=== PATIENT | female | born 1950 | race Caucasian/White ===

== ENCOUNTER → 2016-04-07 | Outpatient (CLI) | payer BC ==
[~2016-04-07] MED LIST: DULO30CA PO; ESZO3TAB53 PO; IBUP800T24 PO; METF-312 PO; METF-314 PO; NOR10T PO; OMEP20TA44 PO; TRIA75TA55 PO
[2016-04-07 09:31] LABS: BUN/Creatinine Ratio 20.1; Calcium 9.1 mg/dL (8.5-10.1); Phosphorus 3.8 mg/dL (2.5-4.90); Potassium 3.8 mmol/L (3.5-5.1); Uric Acid 7.5 mg/dL (2.6-6.0)
== END | disposition home or self-care (01) ==
LOC: LAB 08:55
PROVIDERS: ATTEND Internal Medicine
DX: M06.9 Rheumatoid arthritis, unspecified (principal)
CPT/HCPCS: 36415; 80069; 84550

== ENCOUNTER → 2016-06-09 | Outpatient (CLI) | payer BC ==
[2016-06-09 11:08] LABS: Urine Bilirubin Negative (Negative); Urine Blood Negative /uL (Negative); Urine Color Yellow (Yellow); Urine Glucose Normal (Normal); Urine Ketone Negative (Negative); Urine Mucus FEW (None Seen); Urine Nitrite Negative (Negative); Urine RBC <1 /hpf (0 - 4); Urine Squamous Epithelial Cell FEW /hpf (<5); Urine Urobilinogen Normal (Negative); Urine pH 5.5 (5.0-8.0)
[2016-06-09 11:27] LABS: Albumin 4.1 g/dL (3.4-5.0); BUN/Creatinine Ratio 17.3; Bilirubin, Total 0.2 mg/dL (0.2-1.0); Calcium 9.2 mg/dL (8.5-10.1); Potassium 3.4 mmol/L (3.5-5.1); Total Protein 7.7 g/dL (6.4-8.2); Uric Acid 7.4 mg/dL (2.6-6.0)
== END | disposition home or self-care (01) ==
LOC: LAB 09:58
PROVIDERS: ATTEND Internal Medicine
DX: I10 Essential (primary) hypertension (principal); E11.9 Type 2 diabetes mellitus without complications; N18.4 Chronic kidney disease, stage 4 (severe)
CPT/HCPCS: 36415; 80053; 80061; 81001; 82043; 82306; 83036; 83970; 84443; 84550

== ENCOUNTER → 2016-11-28 | Outpatient (CLI) | payer BC ==
[~2016-11-28] MED LIST changes: -METF-312 PO; -METF-314 PO; +METF-370 PO; +METF-371 PO
[2016-11-28 12:55] LABS: Cholesterol 219 mg/dL (< 200); HDL Cholesterol 47 mg/dL (40-59); LDL Cholesterol 123 mg/dL (< 100); Triglycerides 263 mg/dL (< 150)
== END | disposition home or self-care (01) ==
LOC: LAB 11:52
PROVIDERS: ATTEND Internal Medicine
DX: E78.2 Mixed hyperlipidemia (principal); E11.9 Type 2 diabetes mellitus without complications
CPT/HCPCS: 36415; 80061; 83036

== ENCOUNTER → 2016-12-26 | Outpatient (CLI) | payer BC ==
[2016-12-26 09:49] LABS: Urine Bilirubin Negative (Negative); Urine Blood Negative /uL (Negative); Urine Color Yellow (Yellow); Urine Glucose Normal (Normal); Urine Hyaline Cast FEW /lpf (0 - 2); Urine Ketone Negative (Negative); Urine Nitrite Negative (Negative); Urine RBC <1 /hpf (0 - 4); Urine Squamous Epithelial Cell MOD /hpf (<5); Urine pH 5.5 (5.0-8.0)
[2016-12-26 10:02] LABS: Basophils # (auto) 0.1 uL; Eosinophils # (auto) 0.4 uL; Lymphocytes # (auto) 2.5 uL; Mean Platelet Volume 7.3 fL (6.9-10.8); Monocytes # (auto) 0.7 uL; Neutrophils # (auto) 3.5 uL; Nucleated Red Blood Cells % 0.1 %; White Blood Cell 7.1 10^3/uL (4.4-10.8)
[2016-12-26 10:04] LABS: BUN/Creatinine Ratio 13.2; Basophils % (auto) 1.4 % (0.0-2.0); Calcium 8.5 mg/dL (8.5-10.1); Eosinophils % (auto) 5.4 % (0.0-7.0); Hematocrit 35.8 % (36.0-46.0); Hemoglobin 11.4 g/dL (12.2-16.2); Mean Corpuscular Hemoglobin 25.9 pg (28.0-32.0); Mean Corpuscular Hgb Conc. 31.7 g/dL (32.0-36.0); Mean Corpuscular Volume 81.7 fL (80.0-100.0); Monocytes % (auto) 9.3 % (0.0-12.0); Neutrophils % (auto) 48.9 % (37.0-80.0); Phosphorus 3.5 mg/dL (2.5-4.90); Platelet Count (auto) 296 10^3/uL (140-450); Red Cell Distribution Width 16.7 % (11.8-14.3); Uric Acid 7.1 mg/dL (2.6-6.0)
[2016-12-26 10:31] LABS: Urine Protein/Creatinine Ratio 0.16
== END | disposition home or self-care (01) ==
LOC: LAB 08:59
PROVIDERS: ATTEND Internal Medicine Nephrology
DX: N18.3 Chronic kidney disease, stage 3 (moderate) (principal); D63.1 Anemia in chronic kidney disease; M10.9 Gout, unspecified; R80.9 Proteinuria, unspecified
CPT/HCPCS: 36415; 80069; 81001; 82570; 83970; 84156; 84550; 85025

== ENCOUNTER → 2017-03-27 | Outpatient (CLI) | payer BC ==
[2017-03-27 13:08] LABS: Basophils # (auto) 0.1 uL; Basophils % (auto) 1.2 % (0.0-2.0); Eosinophils # (auto) 0.3 uL; Hemoglobin 11.4 g/dL (12.2-16.2); Monocytes # (auto) 0.6 uL
[2017-03-27 13:09] LABS: Eosinophils % (auto) 4.7 % (0.0-7.0); Hematocrit 36.8 % (36.0-46.0); Mean Corpuscular Hemoglobin 26.2 pg (28.0-32.0); Mean Corpuscular Hgb Conc. 31.1 g/dL (32.0-36.0); Mean Corpuscular Volume 84.4 fL (80.0-100.0); Monocytes % (auto) 7.6 % (0.0-12.0); Neutrophils # (auto) 3.4 uL; Neutrophils % (auto) 46.5 % (37.0-80.0); Nucleated Red Blood Cells % 0.1 %; Platelet Count (auto) 293 10^3/uL (140-450); Red Blood Cells 4.36 10^6/uL (4.0-5.20); Red Cell Distribution Width 15.9 % (11.8-14.3); White Blood Cell 7.4 10^3/uL (4.4-10.8)
[2017-03-27 13:16] LABS: Urine Bacteria FEW /hpf (None Seen); Urine Blood Negative /uL (Negative); Urine Hyaline Cast FEW /lpf (0 - 2); Urine Mucus FEW (None Seen); Urine Specific Gravity 1.021 (1.001-1.035); Urine WBC 1 /hpf (0 - 5)
[2017-03-27 13:39] LABS: Calcium 8.5 mg/dL (8.5-10.1); Phosphorus 3.6 mg/dL (2.5-4.90); Uric Acid 5.8 mg/dL (2.6-6.0)
[2017-03-27 13:50] LABS: Protein, Urine 23.5 mg/dL (0.0-11.9)
== END | disposition home or self-care (01) ==
LOC: LAB 12:49
PROVIDERS: ATTEND Internal Medicine Nephrology
DX: N18.3 Chronic kidney disease, stage 3 (moderate) (principal); D63.1 Anemia in chronic kidney disease; M10.9 Gout, unspecified; R80.9 Proteinuria, unspecified
CPT/HCPCS: 36415; 80069; 81001; 82570; 83970; 84156; 84550; 85025

== ENCOUNTER → 2017-06-26 | Outpatient (CLI) | payer BC ==
[2017-06-26 10:13] LABS: Basophils # (auto) 0.1 uL; Basophils % (auto) 1.1 % (0.0-2.0); Eosinophils # (auto) 0.4 uL; Eosinophils % (auto) 6.6 % (0.0-7.0); Hemoglobin 12.4 g/dL (12.2-16.2); Lymphocytes % (auto) 43.8 % (10.0-50.0); Mean Corpuscular Hemoglobin 27.8 pg (28.0-32.0); Mean Corpuscular Hgb Conc. 32.5 g/dL (32.0-36.0); Mean Corpuscular Volume 85.5 fL (80.0-100.0); Monocytes # (auto) 0.5 uL; Monocytes % (auto) 7.7 % (0.0-12.0); Neutrophils # (auto) 2.8 uL; Neutrophils % (auto) 40.8 % (37.0-80.0); Nucleated Red Blood Cells % 0.1 %; Platelet Count (auto) 302 10^3/uL (140-450); Red Blood Cells 4.45 10^6/uL (4.0-5.20); Red Cell Distribution Width 15.6 % (11.8-14.3); White Blood Cell 6.8 10^3/uL (4.4-10.8)
[2017-06-26 10:45] LABS: BUN/Creatinine Ratio 16.1; Calcium 8.9 mg/dL (8.5-10.1); Phosphorus 3.5 mg/dL (2.5-4.90); Uric Acid 7.8 mg/dL (2.6-6.0)
[2017-06-26 11:07] LABS: Protein, Urine 27.9 mg/dL (0.0-11.9); Urine Bacteria NONE SEEN /hpf (None Seen); Urine Blood Negative /uL (Negative); Urine Specific Gravity 1.024 (1.001-1.035); Urine WBC <1 /hpf (0 - 5)
== END | disposition home or self-care (01) ==
LOC: LAB 09:15
PROVIDERS: ATTEND Internal Medicine Nephrology
DX: E11.22 Type 2 diabetes mellitus with diabetic chronic kidney disease (principal); I12.9 Hypertensive chronic kidney disease with stage 1 through stage 4 chronic kidney disease, or unspecified chronic kidney disease; N18.3 Chronic kidney disease, stage 3 (moderate); D63.1 Anemia in chronic kidney disease; E21.3 Hyperparathyroidism, unspecified; E78.5 Hyperlipidemia, unspecified; M10.9 Gout, unspecified; E55.9 Vitamin D deficiency, unspecified; R80.9 Proteinuria, unspecified
CPT/HCPCS: 36415; 80069; 81001; 82306; 82570; 83970; 84156; 84550; 85025

== ENCOUNTER → 2017-11-09 | Outpatient (CLI) | payer BC ==
[~2017-11-09] MED LIST changes: +ALBUTEROL SULF 2.5 MG/0.5ML(0.5%) NEB SOLN ONE
== END | disposition home or self-care (01) ==
LOC: RT 08:38
PROVIDERS: ATTEND Internal Medicine Pulmonary Disease
DX: R06.00 Dyspnea, unspecified (principal)
CPT/HCPCS: 94060

== ENCOUNTER → 2017-12-25 | Outpatient (CLI) | payer BC ==
[~2017-12-25] MED LIST changes: -ALBUTEROL SULF 2.5 MG/0.5ML(0.5%) NEB SOLN ONE
[2017-12-25 11:37] LABS: Basophils # (auto) 0.1 uL; Basophils % (auto) 1.2 % (0.0-2.0); Eosinophils # (auto) 0.5 uL; Eosinophils % (auto) 7.7 % (0.0-7.0); Hematocrit 41.6 % (36.0-46.0); Hemoglobin 13.5 g/dL (12.2-16.2); Lymphocytes # (auto) 2.1 uL; Mean Corpuscular Hemoglobin 29.3 pg (28.0-32.0); Mean Corpuscular Hgb Conc. 32.4 g/dL (32.0-36.0); Mean Corpuscular Volume 90.4 fL (80.0-100.0); Monocytes # (auto) 0.4 uL; Monocytes % (auto) 6.7 % (0.0-12.0); Neutrophils # (auto) 3.3 uL; Neutrophils % (auto) 51.4 % (37.0-80.0); Platelet Count (auto) 262 10^3/uL (140-450); Red Blood Cells 4.61 10^6/uL (4.0-5.20); Red Cell Distribution Width 14.8 % (11.8-14.3); White Blood Cell 6.5 10^3/uL (4.4-10.8)
[2017-12-25 11:42] LABS: Urine Bacteria FEW /hpf (None Seen); Urine Blood Negative /uL (Negative); Urine Mucus FEW (None Seen); Urine Specific Gravity 1.027 (1.001-1.035); Urine WBC 2 /hpf (0 - 5)
[2017-12-25 11:51] LABS: Albumin 3.8 g/dL (3.4-5.0); Calcium 8.9 mg/dL (8.5-10.1); Potassium 3.6 mmol/L (3.5-5.1); Protein, Urine 28.8 mg/dL (0.0-11.9)
[2017-12-25 11:55] LABS: BUN/Creatinine Ratio 15.9; Phosphorus 3.2 mg/dL (2.5-4.90); Uric Acid 8.1 mg/dL (2.6-6.0)
== END | disposition home or self-care (01) ==
LOC: LAB 10:01
PROVIDERS: ATTEND Internal Medicine Nephrology
DX: I12.9 Hypertensive chronic kidney disease with stage 1 through stage 4 chronic kidney disease, or unspecified chronic kidney disease (principal); E11.22 Type 2 diabetes mellitus with diabetic chronic kidney disease; N18.4 Chronic kidney disease, stage 4 (severe); D63.1 Anemia in chronic kidney disease; E21.3 Hyperparathyroidism, unspecified; E78.5 Hyperlipidemia, unspecified; M10.9 Gout, unspecified; E55.9 Vitamin D deficiency, unspecified; R80.9 Proteinuria, unspecified
CPT/HCPCS: 36415; 80061; 80069; 81001; 82306; 82570; 83970; 84156; 84550; 85025

== ENCOUNTER → 2018-06-28 | Outpatient (CLI) | payer BC ==
[2018-06-28 09:54] LABS: Basophils # (auto) 0.1 uL; Basophils % (auto) 0.8 % (0.0-2.0); Eosinophils # (auto) 0.4 uL; Eosinophils % (auto) 3.5 % (0.0-7.0); Hemoglobin 13.6 g/dL (12.2-16.2); Lymphocytes # (auto) 1.4 uL; Lymphocytes % (auto) 12.5 % (10.0-50.0); Mean Corpuscular Hgb Conc. 33.2 g/dL (32.0-36.0); Mean Corpuscular Volume 90.3 fL (80.0-100.0); Monocytes # (auto) 0.7 uL; Monocytes % (auto) 6.2 % (0.0-12.0); Neutrophils # (auto) 8.3 uL; Platelet Count (auto) 245 10^3/uL (140-450); Red Blood Cells 4.54 10^6/uL (4.0-5.20); Red Cell Distribution Width 14.2 % (11.8-14.3); White Blood Cell 10.8 10^3/uL (4.4-10.8)
[2018-06-28 10:02] LABS: Urine Blood Negative /uL (Negative)
[2018-06-28 10:13] LABS: Protein, Urine 48.5 mg/dL (0.0-11.9)
[2018-06-28 12:02] LABS: Creatinine, Urine 305 mg/dL (30.0-125.0)
[2018-06-28 12:24] LABS: Albumin 4.1 g/dL (3.4-5.0); Calcium 9.1 mg/dL (8.5-10.1); Potassium 3.6 mmol/L (3.5-5.1)
[2018-06-28 12:26] LABS: BUN/Creatinine Ratio 18.3; Phosphorus 3.7 mg/dL (2.5-4.90)
== END | disposition home or self-care (01) ==
LOC: LAB 08:54
PROVIDERS: ATTEND Internal Medicine Nephrology
DX: I12.9 Hypertensive chronic kidney disease with stage 1 through stage 4 chronic kidney disease, or unspecified chronic kidney disease (principal); E11.22 Type 2 diabetes mellitus with diabetic chronic kidney disease; N18.3 Chronic kidney disease, stage 3 (moderate); M10.9 Gout, unspecified; D63.1 Anemia in chronic kidney disease; E78.5 Hyperlipidemia, unspecified; R80.9 Proteinuria, unspecified; E21.3 Hyperparathyroidism, unspecified
CPT/HCPCS: 36415; 80061; 80069; 81003; 82306; 82570; 83970; 84156; 84550; 85025

== ENCOUNTER → 2018-10-29 | Outpatient (CLI) | payer BC ==
[2018-10-29 12:01] LABS: Urine Blood Negative /uL (Negative); Urine Specific Gravity 1.029 (1.001-1.035)
[2018-10-29 12:11] LABS: Basophils # (auto) 0.1 uL; Basophils % (auto) 1.2 % (0.0-2.0); Eosinophils # (auto) 0.5 uL; Eosinophils % (auto) 8.4 % (0.0-7.0); Hematocrit 43.3 % (36.0-46.0); Hemoglobin 14.6 g/dL (12.2-16.2); Lymphocytes # (auto) 2.3 uL; Lymphocytes % (auto) 37.8 % (10.0-50.0); Mean Corpuscular Hgb Conc. 33.7 g/dL (32.0-36.0); Monocytes # (auto) 0.5 uL; Monocytes % (auto) 8.1 % (0.0-12.0); Neutrophils # (auto) 2.7 uL; Neutrophils % (auto) 44.5 % (37.0-80.0); Nucleated Red Blood Cells % 0.1 %; Platelet Count (auto) 221 10^3/uL (140-450); Red Blood Cells 4.71 10^6/uL (4.0-5.20); Red Cell Distribution Width 14.4 % (11.8-14.3)
[2018-10-29 12:29] LABS: Creatinine, Urine 203 mg/dL (30.0-125.0); Protein, Urine 35.8 mg/dL (0.0-11.9)
[2018-10-29 12:54] LABS: Potassium 3.8 mmol/L (3.5-5.1)
[2018-10-29 13:02] LABS: Albumin 4.2 g/dL (3.4-5.0); BUN/Creatinine Ratio 16.4; Bilirubin, Total 0.3 mg/dL (0.2-1.0); Phosphorus 3.7 mg/dL (2.5-4.90); Total Protein 7.8 g/dL (6.4-8.2); Uric Acid 7.6 mg/dL (2.6-6.0)
[2018-10-29 13:10] LABS: Free T4 (Free Thyroxine) 0.82 ng/dL (0.89-1.76); T3 Total 0.94 ng/mL (0.60-1.81)
== END | disposition home or self-care (01) ==
LOC: LAB 11:28
PROVIDERS: ATTEND Physician Assistant
DX: E55.9 Vitamin D deficiency, unspecified (principal); R80.9 Proteinuria, unspecified; M10.9 Gout, unspecified; N39.0 Urinary tract infection, site not specified; E21.3 Hyperparathyroidism, unspecified; I12.9 Hypertensive chronic kidney disease with stage 1 through stage 4 chronic kidney disease, or unspecified chronic kidney disease; N18.4 Chronic kidney disease, stage 4 (severe); E78.1 Pure hyperglyceridemia; G62.9 Polyneuropathy, unspecified; N25.81 Secondary hyperparathyroidism of renal origin
CPT/HCPCS: 36415; 80053; 80061; 80069; 81003; 82306; 82570; 83970; 84156; 84439; 84443; 84480; 84550; 85025

== ENCOUNTER → 2019-01-24 | Outpatient (CLI) | payer BC ==
[2019-01-24 10:47] LABS: Urine Blood Negative /uL (Negative); Urine Specific Gravity 1.024 (1.001-1.035)
[2019-01-24 11:00] LABS: Basophils # (auto) 0.2 uL; Basophils % (auto) 2.2 % (0.0-2.0); Eosinophils # (auto) 0.5 uL; Eosinophils % (auto) 6.3 % (0.0-7.0); Hematocrit 42.8 % (36.0-46.0); Hemoglobin 14.8 g/dL (12.2-16.2); Lymphocytes # (auto) 2.3 uL; Lymphocytes % (auto) 29.4 % (10.0-50.0); Mean Corpuscular Hemoglobin 31.4 pg (28.0-32.0); Mean Corpuscular Hgb Conc. 34.5 g/dL (32.0-36.0); Monocytes # (auto) 0.5 uL; Monocytes % (auto) 6.6 % (0.0-12.0); Neutrophils # (auto) 4.3 uL; Neutrophils % (auto) 55.5 % (37.0-80.0); Platelet Count (auto) 231 10^3/uL (140-450); Red Cell Distribution Width 14.1 % (11.8-14.3); White Blood Cell 7.7 10^3/uL (4.4-10.8)
[2019-01-24 11:14] LABS: Potassium 3.5 mmol/L (3.5-5.1)
[2019-01-24 11:18] LABS: Albumin 4.4 g/dL (3.4-5.0); Calcium 8.9 mg/dL (8.5-10.1); Phosphorus 3.4 mg/dL (2.5-4.90); Uric Acid 6.8 mg/dL (2.6-6.0)
[2019-01-24 11:25] LABS: Creatinine, Urine 181 mg/dL (30.0-125.0); Protein, Urine 32.5 mg/dL (0.0-11.9)
== END | disposition home or self-care (01) ==
LOC: LAB 10:28
PROVIDERS: ATTEND Internal Medicine Nephrology
DX: E55.9 Vitamin D deficiency, unspecified (principal); R80.9 Proteinuria, unspecified; I12.9 Hypertensive chronic kidney disease with stage 1 through stage 4 chronic kidney disease, or unspecified chronic kidney disease; N18.3 Chronic kidney disease, stage 3 (moderate); E21.3 Hyperparathyroidism, unspecified; D63.1 Anemia in chronic kidney disease; N39.0 Urinary tract infection, site not specified; M10.9 Gout, unspecified
CPT/HCPCS: 36415; 80069; 81003; 82306; 82570; 83970; 84156; 84550; 85025; 87086

== ENCOUNTER → 2019-03-15 | Outpatient (CLI) | payer BC | END | disposition home or self-care (01) | LOC: XY 07:19 | PROVIDERS: ATTEND Surgery | DX: E04.1 Nontoxic single thyroid nodule (principal) | CPT/HCPCS: 78014; A9516 ==

== ENCOUNTER → 2019-05-30 | Outpatient (CLI) | payer BC ==
[2019-05-30 10:05] LABS: Basophils # (auto) 0.1 10 ^3/uL (0-0.2); Basophils % (auto) 1.2 % (0.0-2.0); Eosinophils # (auto) 0.6 10 ^3/uL (0-0.8); Eosinophils % (auto) 9.1 % (0.0-7.0); Hematocrit 44.8 % (36.0-46.0); Hemoglobin 14.9 g/dL (12.2-16.2); Lymphocytes % (auto) 29.4 % (10.0-50.0); Mean Corpuscular Hgb Conc. 33.3 g/dL (32.0-36.0); Monocytes # (auto) 0.6 10 ^3/uL (0-1.3); Monocytes % (auto) 8.3 % (0.0-12.0); Neutrophils # (auto) 3.5 10 ^3/uL (1.6-8.6); Nucleated Red Blood Cells % 0.1 %; Platelet Count (auto) 246 10^3/uL (140-450); Red Blood Cells 4.82 10^6/uL (4.0-5.20); Red Cell Distribution Width 13.9 % (11.8-14.3); White Blood Cell 6.7 10^3/uL (4.4-10.8)
[2019-05-30 10:19] LABS: Urine Bacteria FEW /hpf (None Seen); Urine Blood Negative /uL (Negative); Urine Hyaline Cast MOD /lpf (0 - 2); Urine Mucus FEW (None Seen); Urine Specific Gravity 1.026 (1.001-1.035); Urine WBC 30 /hpf (0 - 5)
[2019-05-30 10:51] LABS: Albumin 4.1 g/dL (3.4-5.0); Calcium 9.3 mg/dL (8.5-10.1); Potassium 3.3 mmol/L (3.5-5.1); Protein, Urine 32.8 mg/dL (0.0-11.9)
[2019-05-30 10:59] LABS: BUN/Creatinine Ratio 21.6; Phosphorus 3.9 mg/dL (2.5-4.90); Uric Acid 7.2 mg/dL (2.6-6.0)
== END | disposition home or self-care (01) ==
LOC: LAB 09:33
PROVIDERS: ATTEND Internal Medicine Nephrology
DX: E55.9 Vitamin D deficiency, unspecified (principal); R80.9 Proteinuria, unspecified
CPT/HCPCS: 36415; 80069; 81001; 82306; 82570; 83970; 84156; 84550; 85025

== ENCOUNTER → 2019-08-02 | Outpatient (CLI) | payer BC | END | disposition home or self-care (01) | LOC: LAB 10:46 | PROVIDERS: ATTEND Psychiatry & Neurology Neurology | DX: G70.00 Myasthenia gravis without (acute) exacerbation (principal) | CPT/HCPCS: 36415; 82550 ==

== ENCOUNTER → 2019-09-05 | Outpatient (CLI) | payer BC ==
[2019-09-05 10:17] LABS: Basophils # (auto) 0.1 10 ^3/uL (0-0.2); Eosinophils # (auto) 0.5 10 ^3/uL (0-0.8); Hematocrit 43.2 % (36.0-46.0); Hemoglobin 14.9 g/dL (12.2-16.2); Lymphocytes # (auto) 1.9 10 ^3/uL (0.4-5.4); Lymphocytes % (auto) 27.4 % (10.0-50.0); Mean Corpuscular Hemoglobin 31.6 pg (28.0-32.0); Mean Corpuscular Hgb Conc. 34.4 g/dL (32.0-36.0); Mean Corpuscular Volume 91.8 fL (80.0-100.0); Monocytes # (auto) 0.5 10 ^3/uL (0-1.3); Monocytes % (auto) 6.9 % (0.0-12.0); Neutrophils % (auto) 57.7 % (37.0-80.0); Platelet Count (auto) 273 10^3/uL (140-450); Red Blood Cells 4.71 10^6/uL (4.0-5.20); Red Cell Distribution Width 13.2 % (11.8-14.3); White Blood Cell 6.9 10^3/uL (4.4-10.8)
[2019-09-05 10:22] LABS: Urine Bacteria FEW /hpf (None Seen); Urine Blood Negative /uL (Negative); Urine Mucus FEW (None Seen); Urine Specific Gravity 1.027 (1.001-1.035); Urine WBC 38 /hpf (0 - 5)
[2019-09-05 10:32] LABS: Potassium 3.2 mmol/L (3.5-5.1)
[2019-09-05 10:42] LABS: BUN/Creatinine Ratio 20.5; Calcium 9.4 mg/dL (8.5-10.1); Phosphorus 2.8 mg/dL (2.5-4.90); Uric Acid 7.2 mg/dL (2.6-6.0)
[2019-09-05 10:43] LABS: Protein, Urine 36.2 mg/dL (0.0-11.9)
== END | disposition home or self-care (01) ==
LOC: LAB 08:42
PROVIDERS: ATTEND Internal Medicine Nephrology
DX: E56.9 Vitamin deficiency, unspecified (principal); R80.9 Proteinuria, unspecified
CPT/HCPCS: 36415; 80069; 81001; 82306; 82570; 83970; 84156; 84550; 85025

== ENCOUNTER → 2020-01-25 | Outpatient (CLI) | payer BC | END | disposition home or self-care (01) | LOC: LAB 09:43 | PROVIDERS: ATTEND Psychiatry & Neurology Neurology | DX: G70.00 Myasthenia gravis without (acute) exacerbation (principal) | CPT/HCPCS: 36415; 82550; 82607 ==

== ENCOUNTER → 2020-03-05 | Outpatient (CLI) | payer BC ==
[2020-03-05 10:38] LABS: Basophils # (auto) 0.1 10 ^3/uL (0-0.2); Basophils % (auto) 1.2 % (0.0-2.0); Eosinophils # (auto) 0.3 10 ^3/uL (0-0.8); Eosinophils % (auto) 5.8 % (0.0-7.0); Hematocrit 42.1 % (36.0-46.0); Hemoglobin 14.1 g/dL (12.2-16.2); Lymphocytes # (auto) 1.6 10 ^3/uL (0.4-5.4); Lymphocytes % (auto) 27.9 % (10.0-50.0); Mean Corpuscular Hemoglobin 31.2 pg (28.0-32.0); Mean Corpuscular Hgb Conc. 33.5 g/dL (32.0-36.0); Monocytes # (auto) 0.4 10 ^3/uL (0-1.3); Monocytes % (auto) 7.9 % (0.0-12.0); Neutrophils # (auto) 3.2 10 ^3/uL (1.6-8.6); Neutrophils % (auto) 57.2 % (37.0-80.0); Nucleated Red Blood Cells % 0.1 %; Platelet Count (auto) 201 10^3/uL (140-450); Red Blood Cells 4.52 10^6/uL (4.0-5.20); Red Cell Distribution Width 13.1 % (11.8-14.3); White Blood Cell 5.7 10^3/uL (4.4-10.8)
[2020-03-05 10:44] LABS: Urine Bacteria NONE SEEN /hpf (None Seen); Urine Blood Negative /uL (Negative); Urine Hyaline Cast FEW /lpf (0 - 2); Urine Mucus FEW (None Seen); Urine Specific Gravity 1.029 (1.001-1.035); Urine WBC 60 /hpf (0 - 5)
[2020-03-05 11:32] LABS: Potassium 3.9 mmol/L (3.5-5.1)
[2020-03-05 11:50] LABS: Albumin 4.2 g/dL (3.4-5.0); BUN/Creatinine Ratio 16.4; Calcium 9.2 mg/dL (8.5-10.1)
[2020-03-05 12:33] LABS: Bilirubin, Total 0.3 mg/dL (0.2-1.0); Phosphorus 3.3 mg/dL (2.5-4.90); Total Protein 7.1 g/dL (6.4-8.2)
[2020-03-05 12:59] LABS: Uric Acid 6.9 mg/dL (2.6-6.0)
[2020-03-05 14:14] LABS: Protein, Urine 36.1 mg/dL (0.0-11.9)
== END | disposition home or self-care (01) ==
LOC: LAB 09:59
PROVIDERS: ATTEND Internal Medicine Nephrology
DX: N18.30 Chronic kidney disease, stage 3 unspecified (principal); D63.1 Anemia in chronic kidney disease; E21.3 Hyperparathyroidism, unspecified; N39.0 Urinary tract infection, site not specified; E56.9 Vitamin deficiency, unspecified; R80.9 Proteinuria, unspecified; M10.9 Gout, unspecified
CPT/HCPCS: 36415; 80053; 80069; 81001; 82306; 82570; 83970; 84156; 84550; 85025

== ENCOUNTER → 2020-05-29 | Outpatient (CLI) | payer BC ==
[~2020-05-29] MED LIST changes: -IBUP800T24 PO; +IBUP800T27 PO
== END | disposition home or self-care (01) ==
LOC: LAB 10:35
PROVIDERS: ATTEND Orthopaedic Surgery Adult Reconstructive Orthopaedic Surgery
DX: G70.00 Myasthenia gravis without (acute) exacerbation (principal)
CPT/HCPCS: 36415; 82550; 82607

== ENCOUNTER → 2020-06-22 | Outpatient (CLI) | payer BC | END | disposition home or self-care (01) | LOC: XYW 09:11 | PROVIDERS: ATTEND Physician Assistant | DX: I67.82 Cerebral ischemia (principal); G70.00 Myasthenia gravis without (acute) exacerbation | CPT/HCPCS: 70540 ==

== ENCOUNTER → 2020-06-28 | Outpatient (CLI) | payer BC ==
[2020-06-28 10:47] LABS: Basophils # (auto) 0.1 10 ^3/uL (0-0.2); Basophils % (auto) 1.3 % (0.0-2.0); Eosinophils # (auto) 0.5 10 ^3/uL (0-0.8); Eosinophils % (auto) 7.8 % (0.0-7.0); Hematocrit 43.2 % (36.0-46.0); Hemoglobin 14.5 g/dL (12.2-16.2); Lymphocytes # (auto) 2.2 10 ^3/uL (0.4-5.4); Lymphocytes % (auto) 32.3 % (10.0-50.0); Mean Corpuscular Hemoglobin 31.5 pg (28.0-32.0); Mean Corpuscular Hgb Conc. 33.6 g/dL (32.0-36.0); Mean Corpuscular Volume 93.8 fL (80.0-100.0); Monocytes # (auto) 0.5 10 ^3/uL (0-1.3); Neutrophils # (auto) 3.4 10 ^3/uL (1.6-8.6); Neutrophils % (auto) 50.6 % (37.0-80.0); Platelet Count (auto) 223 10^3/uL (140-450); Red Blood Cells 4.61 10^6/uL (4.0-5.20); Red Cell Distribution Width 13.8 % (11.8-14.3); White Blood Cell 6.8 10^3/uL (4.4-10.8)
[2020-06-28 10:53] LABS: Urine Blood Negative /uL (Negative)
[2020-06-28 11:51] LABS: Creatinine, Urine 212 mg/dL (30.0-125.0); Potassium 3.7 mmol/L (3.5-5.1); Protein, Urine 36.3 mg/dL (0.0-11.9)
[2020-06-28 11:58] LABS: BUN/Creatinine Ratio 16.6; Calcium 8.9 mg/dL (8.5-10.1); Phosphorus 3.4 mg/dL (2.5-4.90); Uric Acid 7.2 mg/dL (2.6-6.0)
== END | disposition home or self-care (01) ==
LOC: LAB 10:14
PROVIDERS: ATTEND Internal Medicine Nephrology
DX: N18.30 Chronic kidney disease, stage 3 unspecified (principal); D63.1 Anemia in chronic kidney disease; E21.3 Hyperparathyroidism, unspecified; N39.0 Urinary tract infection, site not specified; M10.9 Gout, unspecified; R80.9 Proteinuria, unspecified; E56.9 Vitamin deficiency, unspecified
CPT/HCPCS: 36415; 80069; 81003; 82306; 82570; 83970; 84156; 84550; 85025

== ENCOUNTER → 2020-07-03 | Outpatient (CLI) | payer BC ==
[2020-07-03 11:53] LABS: Basophils # (auto) 0.1 10 ^3/uL (0-0.2); Basophils % (auto) 0.9 % (0.0-2.0); Eosinophils # (auto) 0.5 10 ^3/uL (0-0.8); Hematocrit 38.9 % (36.0-46.0); Hemoglobin 13.3 g/dL (12.2-16.2); Mean Corpuscular Hemoglobin 31.7 pg (28.0-32.0); Mean Corpuscular Hgb Conc. 34.3 g/dL (32.0-36.0); Mean Corpuscular Volume 92.3 fL (80.0-100.0); Monocytes # (auto) 0.6 10 ^3/uL (0-1.3); Monocytes % (auto) 7.4 % (0.0-12.0); Neutrophils # (auto) 5.1 10 ^3/uL (1.6-8.6); Neutrophils % (auto) 61.7 % (37.0-80.0); Platelet Count (auto) 203 10^3/uL (140-450); Red Blood Cells 4.21 10^6/uL (4.0-5.20); Red Cell Distribution Width 13.7 % (11.8-14.3); White Blood Cell 8.3 10^3/uL (4.4-10.8)
[2020-07-03 12:36] LABS: Albumin 3.8 g/dL (3.4-5.0); Calcium 9.2 mg/dL (8.5-10.1); Potassium 3.1 mmol/L (3.5-5.1)
[2020-07-03 12:46] LABS: BUN/Creatinine Ratio 17.1; Bilirubin, Total 0.2 mg/dL (0.2-1.0); CRP High Sensitivity 3.83 mg/dL (< 0.3); Total Protein 7.1 g/dL (6.4-8.2)
== END | disposition home or self-care (01) ==
LOC: LAB 11:16
PROVIDERS: ATTEND Internal Medicine Rheumatology
DX: M05.79 Rheumatoid arthritis with rheumatoid factor of multiple sites without organ or systems involvement (principal)
CPT/HCPCS: 36415; 80053; 85025; 85652; 86141; 86200; 86431

== ENCOUNTER → 2020-08-24 | Outpatient (CLI) | payer BC ==
[2020-08-24 11:26] LABS: Potassium 3.5 mmol/L (3.5-5.1)
[2020-08-24 11:35] LABS: BUN/Creatinine Ratio 15.3; Calcium 9.1 mg/dL (8.5-10.1)
== END | disposition home or self-care (01) ==
LOC: LAB 10:16
PROVIDERS: ATTEND Internal Medicine Nephrology
DX: N18.31 Chronic kidney disease, stage 3a (principal)
CPT/HCPCS: 36415; 80048

== ENCOUNTER → 2021-06-24 | Outpatient (CLI) | payer BC ==
[2021-06-24 09:59] LABS: Basophils # (auto) 0.1 10 ^3/uL (0-0.2); Basophils % (auto) 1.4 % (0.0-2.0); Eosinophils # (auto) 0.8 10 ^3/uL (0-0.8); Eosinophils % (auto) 10.9 % (0.0-7.0); Hematocrit 42.4 % (36.0-46.0); Hemoglobin 14.2 g/dL (12.2-16.2); Lymphocytes # (auto) 2.2 10 ^3/uL (0.4-5.4); Lymphocytes % (auto) 29.4 % (10.0-50.0); Mean Corpuscular Hemoglobin 31.2 pg (28.0-32.0); Mean Corpuscular Hgb Conc. 33.5 g/dL (32.0-36.0); Mean Corpuscular Volume 93.1 fL (80.0-100.0); Monocytes # (auto) 0.5 10 ^3/uL (0-1.3); Monocytes % (auto) 7.2 % (0.0-12.0); Neutrophils # (auto) 3.8 10 ^3/uL (1.6-8.6); Neutrophils % (auto) 51.1 % (37.0-80.0); Nucleated Red Blood Cells % 0.7 %; Red Blood Cells 4.55 10^6/uL (4.0-5.20); Urine Bacteria NONE SEEN /hpf (None Seen); Urine Blood Negative /uL (Negative); Urine Specific Gravity 1.022 (1.001-1.035); Urine WBC 1 /hpf (0 - 5); White Blood Cell 7.5 10^3/uL (4.4-10.8)
[2021-06-24 10:13] LABS: Protein, Urine 20.5 mg/dL (0.0-11.9)
[2021-06-24 10:31] LABS: Calcium 9.1 mg/dL (8.5-10.1); Potassium 3.7 mmol/L (3.5-5.1)
[2021-06-24 10:33] LABS: BUN/Creatinine Ratio 19.2; Uric Acid 7.5 mg/dL (2.6-6.0)
== END | disposition home or self-care (01) ==
LOC: LAB 09:03
PROVIDERS: ATTEND Internal Medicine Nephrology
DX: N18.30 Chronic kidney disease, stage 3 unspecified (principal); D63.1 Anemia in chronic kidney disease; M10.9 Gout, unspecified; E56.9 Vitamin deficiency, unspecified; R80.9 Proteinuria, unspecified; E21.3 Hyperparathyroidism, unspecified; R94.4 Abnormal results of kidney function studies
CPT/HCPCS: 36415; 80069; 81001; 82306; 82570; 83970; 84156; 84443; 84550; 85025

== ENCOUNTER → 2021-09-12 | Outpatient (CLI) | payer BC ==
[2021-09-12 09:55] LABS: Basophils # (auto) 0 10 ^3/uL (0-0.2); Basophils % (auto) 0.3 % (0.0-2.0); Eosinophils # (auto) 0.6 10 ^3/uL (0-0.8); Eosinophils % (auto) 9.5 % (0.0-7.0); Hemoglobin 14.1 g/dL (12.2-16.2); Mean Corpuscular Hemoglobin 30.4 pg (28.0-32.0); Mean Corpuscular Hgb Conc. 32.8 g/dL (32.0-36.0); Mean Corpuscular Volume 92.5 fL (80.0-100.0); Monocytes # (auto) 0.5 10 ^3/uL (0-1.3); Monocytes % (auto) 8.2 % (0.0-12.0); Neutrophils # (auto) 3.3 10 ^3/uL (1.6-8.6); Red Blood Cells 4.65 10^6/uL (4.0-5.20); Red Cell Distribution Width 13.6 % (11.8-14.3); White Blood Cell 6.5 10^3/uL (4.4-10.8)
[2021-09-12 10:15] LABS: Potassium 3.9 mmol/L (3.5-5.1)
[2021-09-12 10:20] LABS: Bilirubin, Total 0.3 mg/dL (0.2-1.0); CRP High Sensitivity 0.21 mg/dL (< 0.3); Calcium 9.2 mg/dL (8.5-10.1); Total Protein 7.2 g/dL (6.4-8.2)
== END | disposition home or self-care (01) ==
LOC: LAB 09:34
PROVIDERS: ATTEND Internal Medicine Rheumatology
DX: M45.9 Ankylosing spondylitis of unspecified sites in spine (principal)
CPT/HCPCS: 36415; 80053; 85025; 85652; 86141; 86256; 86671; 86812

== ENCOUNTER → 2022-01-09 | Outpatient (CLI) | payer BC ==
[2022-01-09 11:09] LABS: Basophils # (auto) 0.1 10 ^3/uL (0-0.2); Basophils % (auto) 1.1 % (0.0-2.0); Eosinophils % (auto) 14.1 % (0.0-7.0); Hematocrit 43.1 % (36.0-46.0); Hemoglobin 14.6 g/dL (12.2-16.2); Lymphocytes # (auto) 2.1 10 ^3/uL (0.4-5.4); Lymphocytes % (auto) 30.7 % (10.0-50.0); Mean Corpuscular Hemoglobin 31.5 pg (28.0-32.0); Mean Corpuscular Hgb Conc. 33.9 g/dL (32.0-36.0); Mean Corpuscular Volume 92.9 fL (80.0-100.0); Monocytes # (auto) 0.5 10 ^3/uL (0-1.3); Monocytes % (auto) 6.6 % (0.0-12.0); Neutrophils # (auto) 3.3 10 ^3/uL (1.6-8.6); Neutrophils % (auto) 47.5 % (37.0-80.0); Nucleated Red Blood Cells % 0.1 %; Red Blood Cells 4.64 10^6/uL (4.0-5.20); Red Cell Distribution Width 13.3 % (11.8-14.3); White Blood Cell 6.9 10^3/uL (4.4-10.8)
[2022-01-09 11:14] LABS: Urine Bacteria NONE SEEN /hpf (None Seen); Urine Blood Negative /uL (Negative); Urine Hyaline Cast FEW /lpf (0 - 2); Urine Mucus FEW (None Seen); Urine Specific Gravity 1.024 (1.001-1.035); Urine WBC 3 /hpf (0 - 5)
[2022-01-09 11:36] LABS: Albumin 3.9 g/dL (3.4-5.0); BUN/Creatinine Ratio 19.9; Calcium 9.1 mg/dL (8.5-10.1); Phosphorus 3.6 mg/dL (2.5-4.90); Potassium 3.9 mmol/L (3.5-5.1); Uric Acid 7.2 mg/dL (2.6-6.0)
[2022-01-09 11:38] LABS: Protein, Urine 24.1 mg/dL (0.0-11.9)
== END | disposition home or self-care (01) ==
LOC: LAB 10:22
PROVIDERS: ATTEND Internal Medicine Nephrology
DX: N18.30 Chronic kidney disease, stage 3 unspecified (principal); E21.3 Hyperparathyroidism, unspecified; R80.9 Proteinuria, unspecified; N39.0 Urinary tract infection, site not specified; D63.1 Anemia in chronic kidney disease
CPT/HCPCS: 36415; 80069; 81001; 82306; 82570; 83970; 84156; 84550; 85025

== ENCOUNTER → 2022-03-10 | Outpatient (CLI) | payer BC ==
[2022-03-10 10:38] LABS: Basophils # (auto) 0.1 10 ^3/uL (0-0.2); Basophils % (auto) 1.2 % (0.0-2.0); Eosinophils # (auto) 0.6 10 ^3/uL (0-0.8); Eosinophils % (auto) 9.2 % (0.0-7.0); Hematocrit 42.9 % (36.0-46.0); Hemoglobin 14.8 g/dL (12.2-16.2); Lymphocytes # (auto) 1.9 10 ^3/uL (0.4-5.4); Lymphocytes % (auto) 28.3 % (10.0-50.0); Mean Corpuscular Hemoglobin 31.7 pg (28.0-32.0); Mean Corpuscular Hgb Conc. 34.4 g/dL (32.0-36.0); Mean Corpuscular Volume 92.2 fL (80.0-100.0); Monocytes # (auto) 0.4 10 ^3/uL (0-1.3); Monocytes % (auto) 6.8 % (0.0-12.0); Neutrophils # (auto) 3.6 10 ^3/uL (1.6-8.6); Neutrophils % (auto) 54.5 % (37.0-80.0); Red Blood Cells 4.66 10^6/uL (4.0-5.20); Red Cell Distribution Width 13.2 % (11.8-14.3); White Blood Cell 6.5 10^3/uL (4.4-10.8)
[2022-03-10 10:57] LABS: Albumin 4.3 g/dL (3.4-5.0); Calcium 9.2 mg/dL (8.5-10.1)
[2022-03-10 11:03] LABS: BUN/Creatinine Ratio 14.8; Bilirubin, Total 0.4 mg/dL (0.2-1.0); Total Protein 7.5 g/dL (6.4-8.2)
== END | disposition home or self-care (01) ==
LOC: LAB 10:16
PROVIDERS: ATTEND Nurse Practitioner Family
DX: Z00.00 Encounter for general adult medical examination without abnormal findings (principal); I12.9 Hypertensive chronic kidney disease with stage 1 through stage 4 chronic kidney disease, or unspecified chronic kidney disease; E11.22 Type 2 diabetes mellitus with diabetic chronic kidney disease; N18.30 Chronic kidney disease, stage 3 unspecified
CPT/HCPCS: 36415; 80053; 80061; 82043; 82306; 83036; 84439; 84443; 85025

== ENCOUNTER → 2022-10-06 | Outpatient (CLI) | payer BC ==
[~2022-10-06] MED LIST changes: -ESZO3TAB53 PO; +ESZO3TAB54 PO; +IBUP-1456 PO; -IBUP800T27 PO
[2022-10-06 11:48] LABS: Basophils # (auto) 0.1 10 ^3/uL (0-0.2); Eosinophils # (auto) 0.8 10 ^3/uL (0-0.8); Eosinophils % (auto) 9.5 % (0.0-7.0); Hematocrit 40.6 % (36.0-46.0); Hemoglobin 13.8 g/dL (12.2-16.2); Lymphocytes % (auto) 25.2 % (10.0-50.0); Mean Corpuscular Hgb Conc. 33.8 g/dL (32.0-36.0); Mean Corpuscular Volume 94.5 fL (80.0-100.0); Monocytes # (auto) 0.6 10 ^3/uL (0-1.3); Monocytes % (auto) 7.4 % (0.0-12.0); Neutrophils # (auto) 4.6 10 ^3/uL (1.6-8.6); Neutrophils % (auto) 56.9 % (37.0-80.0); Nucleated Red Blood Cells % 0.1 %; Red Cell Distribution Width 13.1 % (11.8-14.3); White Blood Cell 8.1 10^3/uL (4.4-10.8)
[2022-10-06 12:23] LABS: Urine Bacteria NONE SEEN /hpf (None Seen); Urine Blood Negative /uL (Negative); Urine Clarity Clear (Clear); Urine Color Yellow (Yellow); Urine Hyaline Cast FEW /lpf (0 - 2); Urine Mucus FEW (None Seen); Urine Protein, UAD TRACE (Negative); Urine Specific Gravity 1.024 (1.001-1.035); Urine Urobilinogen Normal (Negative); Urine WBC 32 /hpf (0 - 5); Urine pH 5.5 (5.0-8.0)
[2022-10-06 12:26] LABS: Albumin 3.6 g/dL (3.4-5.0); BUN/Creatinine Ratio 17.9 (10.0-20.0); Calcium 8.4 mg/dL (8.5-10.1); Phosphorus 3.6 mg/dL (2.5-4.90); Potassium 3.7 mmol/L (3.5-5.1); Uric Acid 8.3 mg/dL (2.6-6.0)
[2022-10-06 12:42] LABS: Protein, Urine 32.2 mg/dL (0.0-11.9); Urine Protein/Creatinine Ratio 0.2
== END | disposition home or self-care (01) ==
LOC: LAB 10:54
PROVIDERS: ATTEND Internal Medicine Nephrology
DX: E56.9 Vitamin deficiency, unspecified (principal); E21.3 Hyperparathyroidism, unspecified; R80.9 Proteinuria, unspecified
CPT/HCPCS: 36415; 80069; 81001; 82306; 82570; 83970; 84156; 84550; 85025

== ENCOUNTER → 2022-11-04 | Outpatient (CLI) | payer BC | END | disposition home or self-care (01) | LOC: XYW 08:44 | PROVIDERS: ATTEND Student in an Organized Health Care Education/Training Program | DX: Z01.810 Encounter for preprocedural cardiovascular examination (principal); I08.3 Combined rheumatic disorders of mitral, aortic and tricuspid valves; I25.9 Chronic ischemic heart disease, unspecified | CPT/HCPCS: 93306 ==

== ENCOUNTER → 2022-12-19 | Outpatient (CLI) | payer BC | END | disposition home or self-care (01) | LOC: LAB 13:50 | PROVIDERS: ATTEND Family Medicine | DX: C44.222 Squamous cell carcinoma of skin of right ear and external auricular canal (principal) | CPT/HCPCS: 88302 ==

== ENCOUNTER 2023-04-06 08:41 | Inpatient (IN) | payer BC ==
[2023-04-03 11:32] LABS: Basophils # (auto) 0.1 10 ^3/uL (0-0.2); Basophils % (auto) 1.1 % (0.0-2.0); Eosinophils # (auto) 0.9 10 ^3/uL (0-0.8); Eosinophils % (auto) 12.7 % (0.0-7.0); Hematocrit 42.4 % (36.0-46.0); Hemoglobin 14.1 g/dL (12.2-16.2); Lymphocytes % (auto) 28.6 % (10.0-50.0); Mean Corpuscular Hemoglobin 31.4 pg (28.0-32.0); Mean Corpuscular Hgb Conc. 33.3 g/dL (32.0-36.0); Mean Corpuscular Volume 94.3 fL (80.0-100.0); Monocytes # (auto) 0.6 10 ^3/uL (0-1.3); Monocytes % (auto) 7.8 % (0.0-12.0); Neutrophils # (auto) 3.6 10 ^3/uL (1.6-8.6); Neutrophils % (auto) 49.8 % (37.0-80.0); Nucleated Red Blood Cells % 0.1 %; Red Blood Cells 4.49 10^6/uL (4.0-5.20); Red Cell Distribution Width 13.1 % (11.8-14.3); White Blood Cell 7.2 10^3/uL (4.4-10.8)
[2023-04-03 11:48] LABS: Urine Bacteria NONE SEEN /hpf (None Seen); Urine Blood Negative /uL (Negative); Urine Clarity Clear (Clear); Urine Color Yellow (Yellow); Urine Hyaline Cast FEW /lpf (0 - 2); Urine Protein, UAD TRACE (Negative); Urine Specific Gravity 1.023 (1.001-1.035); Urine Urobilinogen Normal (Negative); Urine WBC 93 /hpf (0 - 5); Urine pH 5.5 (5.0-8.0)
[2023-04-03 11:54] LABS: INR 1.01 (0.9-1.15); Partial Thromboplastin Time 28.4 SEC (24.5-34.5); Prothrombin Time 10.6 sec (9.3-11.8)
[2023-04-03 12:12] LABS: Alanine Aminotransferase 11 U/L (7-40); Albumin 4.5 g/dL (3.2-4.8); Alkaline Phosphatase 93 U/L (46-116); Anion Gap 8 (5-15); Aspartate Aminotransferase 21 U/L (13-40); BUN/Creatinine Ratio 13.6 (10.0-20.0); Blood Urea Nitrogen 24 mg/dL (9-23); Calcium 9.7 mg/dL (8.5-10.1); Carbon Dioxide 27 mmol/L (20-30); Chloride 108 mmol/L (98-107); Glucose 116 mg/dL (74-106); Sodium 143 mmol/L (136-145)
[2023-04-03 12:13] LABS: Bilirubin, Total 0.3 mg/dL (0.2-1.0); Total Protein 6.9 g/dL (5.7-8.2)
[2023-04-06] VITALS (7 sets, daily range): BP systolic 108–117; BP diastolic 45–56; PULSE 63–69; RESP 16–18; TEMP 98–98.5; O2SAT 92–95
[~2023-04-06] VITALS: Ht 157.5 cm; Wt 71.9 kg
[~2023-04-06 08:41] MED LIST changes: -DULO30CA PO; -ESZO3TAB54 PO; +GABA-339 PO; -IBUP-1456 PO; -METF-370 PO; -METF-371 PO; +MORP1TAB12 PO; -NOR10T PO; -OMEP20TA44 PO; +PANT40TA2 PO; +SIMV20TA20 PO; +TRAZ-228 PO
[2023-04-06] MEDS ORDERED: ceFAZolin 2 GM/D5W100ml 100 ML IV ONE (08:55)
[2023-04-06] MEDS ORDERED: ACETAMINOPHEN IV 1000 MG/100ML (10MG/ML) IV ONE (09:00)
[2023-04-06] MEDS ORDERED: TRANEXAMIC ACID 20 ML ONE (09:03)
[2023-04-06] MEDS ORDERED: KETAMINE 50mg/ML 1ml syringe ONE (09:20)
[2023-04-06] MEDS ORDERED: SODIUM CHLORIDE LOCK 10 ML ONE (09:20)
[2023-04-06] MEDS ORDERED: fentaNYL CITRATE 100 MCG/2 ML VL ONE (09:20)
[2023-04-06] MEDS ORDERED: PROPOFOL 10 MG/ML 20 ML IV ONE (09:20)
[2023-04-06] MEDS ORDERED: ONDANSETRON HCL 4 MG/2 ML VIAL ONE (09:20)
[2023-04-06] MEDS ORDERED: MIDAZOLAM HCL 2MG/2ML 2ml VIAL (1mg/ml) ONE (09:20)
[2023-04-06] MEDS ORDERED: EPINEPHrine HCL 1 MG/1 ML AMP ONE (09:20)
[2023-04-06] MEDS ORDERED: DexAMETHasone SOD PHOS 10MG/1ML VIAL INJ ONE (09:20)
[2023-04-06] MEDS ORDERED: TETRACAINE 1% INJ 2 ML VIAL IJ ONE (09:21)
[2023-04-06] MEDS: CELECOXIB 100 MG CAP PO ONE (09:25)
[2023-04-06] MEDS: PREGABALIN CAPSULE 75 MG CAP PO ONE (09:25)
[2023-04-06] MEDS ORDERED: METOCLOPRAMIDE HCL 5MG/ml INJ 2ml VIAL IV PRN (10:00)
[2023-04-06] MEDS ORDERED: HYDROmorphone HCL 2 MG/ML VL/or syr IV PRN (10:00)
[2023-04-06] MEDS ORDERED: ACCU-CHEK COMFORT CURVE STRIP VI ONE (10:00)
[2023-04-06] MEDS ORDERED: MORPHINE SULFATE INJ 2 MG/ml SYRG IV PRN ×2 (10:00→11:00)
[2023-04-06] MEDS: BUPIVACAINE 0.25% INJ 50ML VIAL ONE (10:21)
[2023-04-06] MEDS: KETOROLAC TROMETH 30 MG/ML 1ML VIAL ONE (10:21)
[2023-04-06] MEDS: MORPHINE SULF PF 5 MG/10 ML VIAL ONE (10:21)
[2023-04-06] MEDS: VANCOMYCIN HCL 1000 MG VL ONE ×2 (10:22)
[2023-04-06] MEDS ORDERED: oxyCODONE HCL 5MG TAB PO PRN (11:00)
[2023-04-06] MEDS ORDERED: NITROGLYCERIN 0.4 MG SL TAB SL PRN (11:00)
[2023-04-06] MEDS: HYDROmorphone HCL 2 MG/ML VL/or syr IV PRN ×2 (11:40→15:23)
[2023-04-06] MEDS: ceFAZolin 1GM/50ML 50 ML IV SCH (13:20)
[2023-04-06] MEDS: SODIUM CHLOR 0.9% PF (SALINE LOCK) 10ML VIAL/SYR IV SCH (13:29)
[2023-04-06] MEDS: LACTATED RINGER'S 1,000 ML IV SCH (13:30)
[2023-04-06] MEDS: traMADol HCL 50 MG TAB PO PRN (14:18)
[2023-04-06] MEDS: ONDANSETRON HCL 4 MG/2 ML VIAL IV PRN (14:18)
[2023-04-06] MEDS ORDERED: IPRATROPIUM BROM 0.5 MG/2.5ML INH SOL NEB PRN ×2 (15:00→18:00)
[2023-04-06] MEDS ORDERED: ALBUTEROL SULF 2.5 MG/0.5ML(0.5%) NEB SOLN NEB PRN ×2 (15:00→18:00)
[2023-04-06] MEDS: traZODone HCL 50 MG TAB PO SCH (17:15)
[2023-04-06] MEDS: oxyCODONE HCL 5MG TAB PO PRN (17:16)
[2023-04-06] MEDS ORDERED: oxyCODONE ER 10 MG TAB PO SCH (22:00)
[2023-04-06] MEDS ORDERED: MORPHINE SULF 15mg ER tab PO SCH (22:00)
[2023-04-06] MEDS: GABAPENTIN 300 MG CAP PO SCH (22:34)
[2023-04-06] MEDS: DOCUSATE SOD 100 MG CAP PO SCH (22:35)
[2023-04-06] MEDS: ATORVASTATIN 20 MG TAB PO SCH (22:35)
[2023-04-06] MEDS: MORPHINE SULF 15mg ER tab PO SCH (22:36)
[2023-04-07] VITALS (9 sets, daily range): BP systolic 112–142; BP diastolic 44–59; PULSE 60–70; RESP 16–20; TEMP 97.8–98.7; O2SAT 90–99
[2023-04-07 05:19] LABS: Basophils # (auto) 0.1 10 ^3/uL (0-0.2); Basophils % (auto) 0.8 % (0.0-2.0); Eosinophils # (auto) 0.6 10 ^3/uL (0-0.8); Eosinophils % (auto) 9.3 % (0.0-7.0); Hematocrit 32.6 % (36.0-46.0); Hemoglobin 11.1 g/dL (12.2-16.2); Lymphocytes # (auto) 1.2 10 ^3/uL (0.4-5.4); Lymphocytes % (auto) 17.7 % (10.0-50.0); Mean Corpuscular Volume 94.2 fL (80.0-100.0); Monocytes # (auto) 0.8 10 ^3/uL (0-1.3); Monocytes % (auto) 12.1 % (0.0-12.0); Neutrophils # (auto) 4.1 10 ^3/uL (1.6-8.6); Neutrophils % (auto) 60.1 % (37.0-80.0); Red Blood Cells 3.46 10^6/uL (4.0-5.20); Red Cell Distribution Width 12.9 % (11.8-14.3); White Blood Cell 6.9 10^3/uL (4.4-10.8)
[2023-04-07 05:31] LABS: Chloride 109 mmol/L (98-107); Potassium 3.6 mmol/L (3.5-5.1); Sodium 142 mmol/L (136-145)
[2023-04-07 05:32] LABS: Anion Gap 6 (5-15); Calcium 8.7 mg/dL (8.5-10.1); Carbon Dioxide 27 mmol/L (20-30)
[2023-04-07 05:37] LABS: BUN/Creatinine Ratio 16.7 (10.0-20.0); Blood Urea Nitrogen 26 mg/dL (9-23); Glucose 121 mg/dL (74-106)
[2023-04-07] MEDS: TRIAMTERENE/HCTZ 37.5/25 MG CAP/TAB PO SCH (08:41)
[2023-04-07] MEDS: PANTOPRAZOLE 40 MG TAB PO SCH (08:41)
[2023-04-07] MEDS: ENOXAPARIN SOD 40 MG/0.4 ML SYRINGE SC SCH (08:42)
[2023-04-07] MEDS ORDERED: TRIAMTERENE/HCTZ 75/50MG TABLET PO SCH (10:00)
[2023-04-07] MEDS: cefTRIAXone 1GM/50ML D5W 50 ML IV ONE (15:34)
[2023-04-08] MEDS: KETOROLAC TROMETH 30 MG/ML 1ML VIAL IV ONE (02:27)
[2023-04-08 05:00] VITALS: BP 118/74; PULSE 61; RESP 18; TEMP 98.1; O2SAT 90
[2023-04-08 06:09] LABS: Basophils # (auto) 0 10 ^3/uL (0-0.2); Basophils % (auto) 0.2 % (0.0-2.0); Eosinophils # (auto) 0 10 ^3/uL (0-0.8); Lymphocytes # (auto) 1.1 10 ^3/uL (0.4-5.4); Lymphocytes % (auto) 10.9 % (10.0-50.0); Mean Corpuscular Hemoglobin 31.9 pg (28.0-32.0); Mean Corpuscular Hgb Conc. 34.3 g/dL (32.0-36.0); Monocytes # (auto) 1.1 10 ^3/uL (0-1.3); Monocytes % (auto) 10.4 % (0.0-12.0); Neutrophils # (auto) 8.2 10 ^3/uL (1.6-8.6); Neutrophils % (auto) 78.5 % (37.0-80.0); Red Blood Cells 3.44 10^6/uL (4.0-5.20); Red Cell Distribution Width 13.1 % (11.8-14.3); White Blood Cell 10.4 10^3/uL (4.4-10.8)
[2023-04-08 07:10] VITALS: O2SAT 97
[2023-04-08 08:00] VITALS: PULSE 63; RESP 17; O2SAT 92
[2023-04-08] MEDS: cefTRIAXone 1GM/50ML D5W 50 ML IV SCH (08:29)
[2023-04-08 09:00] VITALS: BP 133/61; PULSE 63; RESP 17; TEMP 98; O2SAT 92
[2023-04-08 12:50] VITALS: BP 131/41; PULSE 63; RESP 17; TEMP 97.5; O2SAT 92
[2023-04-08 12:53] VITALS: BP 131/47; PULSE 63; RESP 17; TEMP 97.5; O2SAT 92
== END 2023-04-08 14:03 | disposition home health service (06) | DRG 470 ==
LOC: SUR 08:41 → TELE 11:01 → TELE-CENTR 12:57 → CENTRAL 04-08 03:34
PROVIDERS: ADMIT Orthopaedic Surgery Adult Reconstructive Orthopaedic Surgery; ATTEND Internal Medicine
PROC: 0SRD0J9 Replacement of Left Knee Joint with Synthetic Substitute, Cemented, Open Approach (ICD-10-PCS; principal; 2023-04-06 09:30)
DX: M17.12 Unilateral primary osteoarthritis, left knee (principal); N39.0 Urinary tract infection, site not specified; I10 Essential (primary) hypertension; E78.5 Hyperlipidemia, unspecified; J45.909 Unspecified asthma, uncomplicated; G89.4 Chronic pain syndrome
CPT/HCPCS: 36415; 73562; 80048; 80053; 81001; 82962; 85025; 85610; 85730; 86850; 86900; 86901; 97110; 97116; 97163; 97530; C1713; G0378; J0171; J1100; J1885; J2250; J2405; J2704; J3490

== ENCOUNTER → 2023-04-30 | Outpatient (CLI) | payer BC ==
[2023-04-30 10:16] LABS: Basophils # (auto) 0.1 10 ^3/uL (0-0.2); Basophils % (auto) 1.3 % (0.0-2.0); Eosinophils # (auto) 1.1 10 ^3/uL (0-0.8); Hematocrit 38.7 % (36.0-46.0); Hemoglobin 12.6 g/dL (12.2-16.2); Lymphocytes # (auto) 1.9 10 ^3/uL (0.4-5.4); Mean Corpuscular Hemoglobin 31.1 pg (28.0-32.0); Mean Corpuscular Hgb Conc. 32.6 g/dL (32.0-36.0); Mean Corpuscular Volume 95.5 fL (80.0-100.0); Monocytes # (auto) 0.5 10 ^3/uL (0-1.3); Monocytes % (auto) 6.9 % (0.0-12.0); Neutrophils # (auto) 4.1 10 ^3/uL (1.6-8.6); Neutrophils % (auto) 52.8 % (37.0-80.0); Red Blood Cells 4.05 10^6/uL (4.0-5.20); Red Cell Distribution Width 14.9 % (11.8-14.3); White Blood Cell 7.8 10^3/uL (4.4-10.8)
[2023-04-30 11:31] LABS: Creatinine, Urine 120.67 mg/dL (30.0-125.0)
[2023-04-30 11:35] LABS: Albumin 4.1 g/dL (3.2-4.8); Alkaline Phosphatase 105 U/L (46-116); Anion Gap 8 (5-15); Aspartate Aminotransferase 9 U/L (13-40); BUN/Creatinine Ratio 14.1 (10.0-20.0); Bilirubin, Total 0.3 mg/dL (0.2-1.0); Blood Urea Nitrogen 27 mg/dL (9-23); Calcium 9.5 mg/dL (8.7-10.4); Carbon Dioxide 23 mmol/L (20-30); Chloride 111 mmol/L (98-107); Glucose 118 mg/dL (74-106); Potassium 3.7 mmol/L (3.5-5.1); Sodium 142 mmol/L (136-145); Total Protein 6.7 g/dL (5.7-8.2)
[2023-04-30 11:49] LABS: Alanine Aminotransferase 9 U/L (7-40)
[2023-04-30 12:03] LABS: Triglycerides 206 mg/dL (< 150)
[2023-04-30 12:04] LABS: LDL Cholesterol 70 mg/dL (< 100)
[2023-04-30 12:05] LABS: Cholesterol 135 mg/dL (< 200); HDL Cholesterol 38 mg/dL (40-59)
== END | disposition home or self-care (01) ==
LOC: LAB 10:00
PROVIDERS: ATTEND Nurse Practitioner Family
DX: I12.9 Hypertensive chronic kidney disease with stage 1 through stage 4 chronic kidney disease, or unspecified chronic kidney disease (principal); E11.22 Type 2 diabetes mellitus with diabetic chronic kidney disease; N18.9 Chronic kidney disease, unspecified; F32.1 Major depressive disorder, single episode, moderate
CPT/HCPCS: 36415; 80053; 80061; 82043; 82306; 82570; 83036; 84439; 84443; 85025

== ENCOUNTER 2023-06-17 09:30 | Inpatient (IN) | payer BC ==
[~2023-06-17] VITALS: Ht 154.9 cm; Wt 69.6 kg
[2023-06-17 10:57] LABS: Anion Gap 8 (5-15); Carbon Dioxide 24 mmol/L (20-30); Chloride 108 mmol/L (98-107); Potassium 4.1 mmol/L (3.5-5.1); Sodium 140 mmol/L (136-145)
[2023-06-17 10:58] LABS: Calcium 9.8 mg/dL (8.5-10.1)
[2023-06-17 11:02] LABS: Glucose 174 mg/dL (74-106)
[2023-06-17 11:03] LABS: BUN/Creatinine Ratio 12.7 (10.0-20.0); Blood Alcohol < 3.0 mg/dL (<10); Blood Urea Nitrogen 22 mg/dL (9-23)
[2023-06-17 11:12] LABS: Basophils # (auto) 0 10 ^3/uL (0-0.2); Basophils % (auto) 0.3 % (0.0-2.0); Eosinophils # (auto) 0 10 ^3/uL (0-0.8); Eosinophils % (auto) 0.2 % (0.0-7.0); Hematocrit 40.7 % (36.0-46.0); Hemoglobin 13.2 g/dL (12.2-16.2); Lymphocytes # (auto) 0.7 10 ^3/uL (0.4-5.4); Lymphocytes % (auto) 4.3 % (10.0-50.0); Mean Corpuscular Hemoglobin 30.3 pg (28.0-32.0); Mean Corpuscular Hgb Conc. 32.5 g/dL (32.0-36.0); Mean Corpuscular Volume 93.4 fL (80.0-100.0); Monocytes # (auto) 0.6 10 ^3/uL (0-1.3); Monocytes % (auto) 4.1 % (0.0-12.0); Neutrophils # (auto) 14.3 10 ^3/uL (1.6-8.6); Neutrophils % (auto) 91.1 % (37.0-80.0); Red Blood Cells 4.35 10^6/uL (4.0-5.20); Red Cell Distribution Width 13.5 % (11.8-14.3); White Blood Cell 15.7 10^3/uL (4.4-10.8)
[2023-06-17 11:57] VITALS: PULSE 69; RESP 15; O2SAT 95
[2023-06-17 12:13] LABS: Urine Bacteria FEW /hpf (None Seen); Urine Blood Negative /uL (Negative); Urine Clarity Clear (Clear); Urine Color Yellow (Yellow); Urine Hyaline Cast FEW /lpf (0 - 2); Urine Mucus FEW (None Seen); Urine Protein, UAD Negative (Negative); Urine Urobilinogen Normal (Negative); Urine WBC 2 /hpf (0 - 5)
[2023-06-17] MEDS: cefTRIAXone 1GM/50ML D5W 50 ML IV ONE (14:30)
[2023-06-17] MEDS ORDERED: LORazepam 0.5 MG TAB PO PRN ×2 (14:30→18:00)
[2023-06-17] MEDS ORDERED: NITROGLYCERIN 0.4 MG SL TAB SL PRN (14:30)
[2023-06-17] MEDS ORDERED: MORPHINE SULFATE INJ 2 MG/ml SYRG IV PRN (14:30)
[2023-06-17] MEDS ORDERED: DOCUSATE SOD 100 MG CAP PO PRN (14:30)
[2023-06-17] MEDS ORDERED: ACETAMINOPHEN 325 MG TAB PO PRN (14:30)
[2023-06-17] MEDS: ENOXAPARIN SOD 30 MG/0.3 ML SYRINGE SC SCH (15:30)
[2023-06-17 15:41] LABS: Magnesium 2.1 mg/dL (1.6-2.6)
[2023-06-17 15:57] LABS: INR 1.07 (0.9-1.15); Partial Thromboplastin Time 25.9 SEC (24.5-34.5); Prothrombin Time 11.2 sec (9.3-11.8)
[2023-06-17] MEDS: ONDANSETRON HCL 4 MG/2 ML VIAL IV PRN (16:09)
[2023-06-17] MEDS: MORPHINE SULFATE INJ 2 MG/ml SYRG IV PRN (16:18)
[2023-06-17 16:57] LABS: Amphetamine Screen, Urine Neg (NEGATIVE); Benzodiazephine Screen, Urine Neg (NEGATIVE)
[2023-06-17 16:58] LABS: Barbiturate Scree,Urine Neg (NEGATIVE); Cannabinoid Screen, Urine Neg (NEGATIVE); Cocaine Screen, Urine Neg (NEGATIVE); Opiate Scree,Urine Pos (NEGATIVE)
[2023-06-17 17:00] LABS: Phencyclidine Screen, Urine Neg (NEGATIVE)
[2023-06-17 18:31] LABS: Free T3 2.63 pg/mL (2.3-4.2)
[2023-06-17 18:32] LABS: Free T4 (Free Thyroxine) 0.85 ng/dL (0.89-1.76)
[2023-06-17] MEDS: SODIUM CHLORIDE 0.9% 1,000 ML IV SCH (20:40)
[2023-06-17 23:20] VITALS: BP 123/59; PULSE 52; RESP 20; TEMP 97.8; O2SAT 94
[2023-06-18] VITALS (7 sets, daily range): BP systolic 114–137; BP diastolic 45–62; PULSE 49–60; RESP 16–20; TEMP 97.8–98; O2SAT 90–96
[2023-06-18 06:29] LABS: Alanine Aminotransferase 12 U/L (7-40); Albumin 3.7 g/dL (3.2-4.8); Alkaline Phosphatase 64 U/L (46-116); Anion Gap 6 (5-15); Aspartate Aminotransferase 15 U/L (13-40); BUN/Creatinine Ratio 13.5 (10.0-20.0); Blood Urea Nitrogen 20 mg/dL (9-23); Calcium 9.6 mg/dL (8.7-10.4); Carbon Dioxide 25 mmol/L (20-30); Chloride 109 mmol/L (98-107); Creatine Kinase IFCC 79 U/L (34-145); Glucose 95 mg/dL (74-106); Potassium 3.7 mmol/L (3.5-5.1); Sodium 140 mmol/L (136-145)
[2023-06-18 06:30] LABS: Bilirubin, Total 0.4 mg/dL (0.2-1.0); Total Protein 5.8 g/dL (5.7-8.2)
[2023-06-18 06:38] LABS: Basophils # (auto) 0 10 ^3/uL (0-0.2); Basophils % (auto) 0.5 % (0.0-2.0); Eosinophils # (auto) 0.6 10 ^3/uL (0-0.8); Eosinophils % (auto) 6.8 % (0.0-7.0); Hematocrit 34.1 % (36.0-46.0); Hemoglobin 11.4 g/dL (12.2-16.2); Lymphocytes # (auto) 2.3 10 ^3/uL (0.4-5.4); Lymphocytes % (auto) 26.2 % (10.0-50.0); Mean Corpuscular Hemoglobin 31.1 pg (28.0-32.0); Mean Corpuscular Hgb Conc. 33.4 g/dL (32.0-36.0); Monocytes # (auto) 0.6 10 ^3/uL (0-1.3); Monocytes % (auto) 7.3 % (0.0-12.0); Neutrophils # (auto) 5.2 10 ^3/uL (1.6-8.6); Neutrophils % (auto) 59.2 % (37.0-80.0); Nucleated Red Blood Cells % 0.1 %; Red Blood Cells 3.67 10^6/uL (4.0-5.20); Red Cell Distribution Width 13.5 % (11.8-14.3); White Blood Cell 8.8 10^3/uL (4.4-10.8)
[2023-06-18] MEDS: ERGOCALCIFEROL 50,000 UNIT(1.25MG) CAP PO SCH (10:00)
[2023-06-18] MEDS: cefTRIAXone 1GM/50ML D5W 50 ML IV SCH (10:38)
[2023-06-18] MEDS: ASPirin 81 mg TAB PO SCH (10:39)
[2023-06-18] MEDS ORDERED: ASPI-325 PO (12:48)
[2023-06-18] MEDS ORDERED: ATOR20TA50 PO (12:48)
[2023-06-18] MEDS ORDERED: ERGO1CAP23 PO (12:48)
[2023-06-18] MEDS ORDERED: ATORVASTATIN 20 MG TAB PO SCH (22:00)
== END 2023-06-18 17:45 | disposition home or self-care (01) | DRG 69 ==
LOC: ER 09:30 → TELE 14:30 → TELE-WESTW 23:11
PROVIDERS: ADMIT Internal Medicine; ATTEND Emergency Medicine
DX: G45.9 Transient cerebral ischemic attack, unspecified (principal); N17.0 Acute kidney failure with tubular necrosis; N18.6 End stage renal disease; I12.0 Hypertensive chronic kidney disease with stage 5 chronic kidney disease or end stage renal disease; G90.8 Other disorders of autonomic nervous system; F17.200 Nicotine dependence, unspecified, uncomplicated; I36.1 Nonrheumatic tricuspid (valve) insufficiency; E55.9 Vitamin D deficiency, unspecified; E78.5 Hyperlipidemia, unspecified; Z79.899 Other long term (current) drug therapy; Z90.49 Acquired absence of other specified parts of digestive tract
CPT/HCPCS: 36415; 70450; 70551; 71046; 80048; 80053; 80061; 80307; 80320; 81001; 82306; 82550; 82607; 83036; 83605; 83735; 84100; 84439; 84443; 84481; 84484; 85025; 85610; 85730; 87040; 87086; 93005; 93306; 93886; 97163; 99291; G0378; J2405

== ENCOUNTER → 2023-07-06 | Outpatient (CLI) | payer BC ==
[~2023-07-06] MED LIST changes: +ASPI-325 PO; +ATOR20TA50 PO; +ERGO1CAP23 PO; -SIMV20TA20 PO
[2023-07-06 12:15] LABS: Basophils # (auto) 0.1 10 ^3/uL (0-0.2); Basophils % (auto) 1.1 % (0.0-2.0); Eosinophils # (auto) 0.6 10 ^3/uL (0-0.8); Eosinophils % (auto) 7.6 % (0.0-7.0); Hematocrit 41.5 % (36.0-46.0); Hemoglobin 13.7 g/dL (12.2-16.2); Lymphocytes # (auto) 2.4 10 ^3/uL (0.4-5.4); Lymphocytes % (auto) 29.7 % (10.0-50.0); Mean Corpuscular Hemoglobin 30.5 pg (28.0-32.0); Mean Corpuscular Hgb Conc. 32.9 g/dL (32.0-36.0); Mean Corpuscular Volume 92.6 fL (80.0-100.0); Monocytes # (auto) 0.6 10 ^3/uL (0-1.3); Monocytes % (auto) 7.3 % (0.0-12.0); Neutrophils # (auto) 4.4 10 ^3/uL (1.6-8.6); Neutrophils % (auto) 54.3 % (37.0-80.0); Red Blood Cells 4.48 10^6/uL (4.0-5.20); Red Cell Distribution Width 13.8 % (11.8-14.3)
[2023-07-06 12:27] LABS: Urine Bacteria FEW /hpf (None Seen); Urine Blood Negative /uL (Negative); Urine Clarity Clear (Clear); Urine Color Light-Yellow (Yellow); Urine Hyaline Cast FEW /lpf (0 - 2); Urine Protein, UAD Negative (Negative); Urine Urobilinogen Normal (Negative); Urine WBC 3 /hpf (0 - 5); Urine pH 5.5 (5.0-9.0)
[2023-07-06 12:50] LABS: Protein, Urine 27.3 mg/dL (0.0-11.9)
[2023-07-06 12:52] LABS: Creatinine, Urine 100.67 mg/dL (30.0-125.0); Potassium 3.9 mmol/L (3.5-5.1); Urine Protein/Creatinine Ratio 0.27
[2023-07-06 12:53] LABS: Calcium 10.3 mg/dL (8.5-10.1); Creatinine, Urine 103.52 mg/dL (30.0-125.0)
[2023-07-06 12:56] LABS: Albumin 4.5 g/dL (3.2-4.8); Micro Albumin < 3.0 mg/L (<30.0)
[2023-07-06 12:58] LABS: BUN/Creatinine Ratio 16.2 (10.0-20.0)
[2023-07-06 13:00] LABS: Phosphorus 3.5 mg/dL (2.4-5.1)
[2023-07-06 13:45] LABS: Uric Acid 8.9 mg/dL (3.1-7.8)
== END | disposition home or self-care (01) ==
LOC: LAB 11:51
PROVIDERS: ATTEND Internal Medicine Nephrology
DX: N18.31 Chronic kidney disease, stage 3a (principal); E56.9 Vitamin deficiency, unspecified; E21.3 Hyperparathyroidism, unspecified; R80.9 Proteinuria, unspecified; M10.9 Gout, unspecified; D63.1 Anemia in chronic kidney disease
CPT/HCPCS: 36415; 80069; 81001; 82043; 82306; 82570; 83970; 84156; 84550; 85025

== ENCOUNTER → 2023-10-06 | Outpatient (CLI) | payer BC ==
[2023-10-06 08:34] LABS: Urine Bacteria None Seen /hpf (None Seen)
[2023-10-06 08:39] LABS: Basophils # (auto) 0.1 10 ^3/uL (0-0.2); Basophils % (auto) 1.1 % (0.0-2.0); Eosinophils # (auto) 0.5 10 ^3/uL (0-0.8); Eosinophils % (auto) 8.1 % (0.0-7.0); Hematocrit 41.4 % (36.0-46.0); Hemoglobin 13.8 g/dL (12.2-16.2); Lymphocytes # (auto) 1.8 10 ^3/uL (0.4-5.4); Lymphocytes % (auto) 31.1 % (10.0-50.0); Mean Corpuscular Hemoglobin 31.4 pg (28.0-32.0); Mean Corpuscular Hgb Conc. 33.2 g/dL (32.0-36.0); Mean Corpuscular Volume 94.7 fL (80.0-100.0); Monocytes # (auto) 0.5 10 ^3/uL (0-1.3); Monocytes % (auto) 8.4 % (0.0-12.0); Neutrophils % (auto) 51.3 % (37.0-80.0); Nucleated Red Blood Cells % 0.1 %; Red Blood Cells 4.37 10^6/uL (4.0-5.20); Red Cell Distribution Width 14.4 % (11.8-14.3); White Blood Cell 5.8 10^3/uL (4.4-10.8)
[2023-10-06 09:05] LABS: Potassium 4.6 mmol/L (3.5-5.1); Urine Blood Negative /uL (Negative); Urine Clarity Turbid (Clear); Urine Color Yellow (Yellow); Urine Mucus FEW (None Seen); Urine Protein, UAD TRACE (Negative); Urine Specific Gravity 1.022 (1.001-1.035); Urine Urobilinogen Normal (Negative); Urine WBC 43 /hpf (0 - 5); Urine pH 5.5 (5.0-9.0)
[2023-10-06 09:06] LABS: Calcium 9.8 mg/dL (8.7-10.4)
[2023-10-06 09:11] LABS: BUN/Creatinine Ratio 15.2 (10.0-20.0)
[2023-10-06 09:12] LABS: Albumin 4.1 g/dL (3.2-4.8)
[2023-10-06 09:13] LABS: Phosphorus 3.9 mg/dL (2.4-5.1)
[2023-10-06 09:56] LABS: Protein, Urine 22.6 mg/dL (0.0-11.9)
[2023-10-06 09:59] LABS: Creatinine, Urine 157.07 mg/dL (30.0-125.0); Urine Protein/Creatinine Ratio 0.14
[2023-10-06 11:02] LABS: Uric Acid 7.9 mg/dL (3.1-7.8)
== END | disposition home or self-care (01) ==
LOC: LAB 08:25
PROVIDERS: ATTEND Internal Medicine Nephrology
DX: E56.9 Vitamin deficiency, unspecified (principal); E21.3 Hyperparathyroidism, unspecified; R80.9 Proteinuria, unspecified
CPT/HCPCS: 36415; 80069; 81001; 82306; 82570; 83970; 84156; 84550; 85025

== ENCOUNTER 2023-12-15 08:08 | Inpatient (IN) | payer BC ==
[2023-12-14 10:42] LABS: Basophils # (auto) 0.1 10 ^3/uL (0-0.2); Basophils % (auto) 1.1 % (0.0-2.0); Eosinophils # (auto) 0.3 10 ^3/uL (0-0.8); Eosinophils % (auto) 5.8 % (0.0-7.0); Hematocrit 44.7 % (36.0-46.0); Hemoglobin 15.3 g/dL (12.2-16.2); Lymphocytes % (auto) 19.8 % (10.0-50.0); Mean Corpuscular Hemoglobin 32.4 pg (28.0-32.0); Mean Corpuscular Hgb Conc. 34.2 g/dL (32.0-36.0); Mean Corpuscular Volume 94.9 fL (80.0-100.0); Monocytes # (auto) 0.6 10 ^3/uL (0-1.3); Monocytes % (auto) 11.9 % (0.0-12.0); Neutrophils % (auto) 61.4 % (37.0-80.0); Nucleated Red Blood Cells % 0.1 %; Platelet Count (auto) 181 10^3/uL (140-450); Red Blood Cells 4.72 10^6/uL (4.0-5.20); Red Cell Distribution Width 13.4 % (11.8-14.3); White Blood Cell 4.8 10^3/uL (4.4-10.8)
[2023-12-14 11:01] LABS: Urine Bacteria FEW /hpf (None Seen); Urine Blood Negative /uL (Negative); Urine Clarity Turbid (Clear); Urine Color Yellow (Yellow); Urine Hyaline Cast FEW /lpf (0 - 2); Urine Protein, UAD TRACE (Negative); Urine Specific Gravity 1.029 (1.001-1.035); Urine Urobilinogen 2 mg/dL (Negative); Urine WBC 107 /hpf (0 - 5); Urine pH 5.5 (5.0-9.0)
[2023-12-14 11:07] LABS: INR 0.99 (0.9-1.15); Partial Thromboplastin Time 26.5 SEC (24.5-34.5); Prothrombin Time 10.5 sec (9.3-11.8)
[2023-12-14 11:36] LABS: Alanine Aminotransferase 21 U/L (7-40); Albumin 4.5 g/dL (3.2-4.8); Alkaline Phosphatase 86 U/L (46-116); Anion Gap 8 (5-15); Aspartate Aminotransferase 15 U/L (13-40); BUN/Creatinine Ratio 16.7 (10.0-20.0); Bilirubin, Total 0.5 mg/dL (0.2-1.0); Blood Urea Nitrogen 26 mg/dL (9-23); Calcium 10.5 mg/dL (8.7-10.4); Carbon Dioxide 26 mmol/L (20-31); Chloride 108 mmol/L (98-107); Glucose 138 mg/dL (74-106); Potassium 4.3 mmol/L (3.5-5.1); Sodium 142 mmol/L (136-145); Total Protein 7.1 g/dL (5.7-8.2)
[2023-12-15] VITALS (18 sets, daily range): BP systolic 84–136; BP diastolic 36–73; PULSE 83–113; RESP 7–15; O2SAT 94–100
[~2023-12-15] VITALS: Ht 154.9 cm; Wt 70.8 kg
[2023-12-15] MEDS: ceFAZolin 2 GM/D5W100ml 100 ML IV ONE (12:57)
[2023-12-15] MEDS ORDERED: HYDROmorphone HCL 2 MG/ML VL/or syr ONE (13:14)
[2023-12-15] MEDS ORDERED: MIDAZOLAM HCL 2MG/2ML 2ml VIAL (1mg/ml) ONE (13:14)
[2023-12-15] MEDS ORDERED: fentaNYL CITRATE 100 MCG/2 ML VL ONE (13:14)
[2023-12-15] MEDS ORDERED: MORPHINE SULFATE 4 MG/ML SYR/VIAL IV PRN ×2 (14:15)
[2023-12-15] MEDS ORDERED: ONDANSETRON HCL 4 MG/2 ML VIAL IV ONE (14:15)
[2023-12-15] MEDS ORDERED: hydrALAZINE HCL 20 MG/ML VL IV PRN ×3 (14:15→17:45)
[2023-12-15] MEDS: ONDANSETRON HCL 4 MG/2 ML VIAL IV ONE ×2 (14:15→17:45)
[2023-12-15] MEDS ORDERED: ePHEDrine SULFATE 50 MG/ML AMP IV PRN ×3 (14:15→17:45)
[2023-12-15] MEDS ORDERED: MIDAZOLAM HCL 2MG/2ML 2ml VIAL (1mg/ml) IV PRN ×3 (14:15→17:45)
[2023-12-15] MEDS ORDERED: HYDROmorphone HCL 2 MG/ML VL/or syr IV PRN ×3 (14:15→17:45)
[2023-12-15] MEDS ORDERED: ROCURONIUM 10MG/ML 10ML VIAL IV ONE (14:24)
[2023-12-15] MEDS ORDERED: PROPOFOL 10 MG/ML 20 ML IV ONE (14:24)
[2023-12-15] MEDS: levoFLOXacin 500MG 100 ML IV ONE (16:53)
[2023-12-15] MEDS ORDERED: SUGAMMADEX 200mg/2ml Vial (100MG/ML) IV ONE (17:26)
[2023-12-15] MEDS ORDERED: ACETAMINOPHEN 325 MG TAB PO PRN (17:30)
[2023-12-15] MEDS ORDERED: ONDANSETRON HCL 4 MG/2 ML VIAL IV PRN (17:30)
[2023-12-15] MEDS: ERGOCALCIFEROL 50,000 UNIT(1.25MG) CAP PO SCH (17:30)
[2023-12-15] MEDS ORDERED: NITROGLYCERIN 0.4 MG SL TAB SL PRN (17:30)
[2023-12-15] MEDS: MORPHINE SULFATE 4 MG/ML SYR/VIAL IV PRN (18:30)
[2023-12-15] MEDS: HYDROmorphone HCL 2 MG/ML VL/or syr ONE (19:25)
[2023-12-15] MEDS: MORPHINE SULFATE INJ 2 MG/ml SYRG IV PRN (20:31)
[2023-12-15] MEDS: D5W/SOD CHLO 0.9% 1,000 ML IV SCH (20:31)
[2023-12-15] MEDS: DOCUSATE SOD 100 MG CAP PO SCH (22:27)
[2023-12-15] MEDS: MORPHINE SULF 15mg ER tab PO SCH (22:27)
[2023-12-15] MEDS: ceFAZolin 1GM/50ML 50 ML IV SCH (22:27)
[2023-12-15] MEDS: CYCLOBENZAPRINE HCL 10 MG TAB PO SCH (22:28)
[2023-12-15] MEDS: traZODone HCL 50 MG TAB PO SCH (22:32)
[2023-12-16] VITALS (58 sets, daily range): BP systolic 95–158; BP diastolic 29–70; PULSE 57–96; RESP 8–18; TEMP 96.8–99.1; O2SAT 90–100
[2023-12-16] MEDS: HYDROcodone-ACET 10/325MG TAB PO PRN ×2 (02:03→09:14)
[2023-12-16] MEDS: ASPirin-EC 81 mg tab PO SCH (10:12)
[2023-12-16] MEDS: PANTOPRAZOLE 40 MG TAB PO SCH (10:12)
[2023-12-16] MEDS: D5W/SOD CHLO 0.9% 1,000 ML IV SCH (16:00)
[2023-12-16] MEDS: GABAPENTIN 300 MG CAP PO SCH (22:34)
[2023-12-17] VITALS (11 sets, daily range): BP systolic 101–134; BP diastolic 31–74; PULSE 65–90; RESP 16–19; TEMP 97.9–99.4; O2SAT 90–97
[2023-12-17 07:12] LABS: Alanine Aminotransferase 19 U/L (7-40); Albumin 3.4 g/dL (3.2-4.8); Alkaline Phosphatase 54 U/L (46-116); Anion Gap 6 (5-15); Aspartate Aminotransferase 54 U/L (13-40); BUN/Creatinine Ratio 15.7 (10.0-20.0); Blood Urea Nitrogen 18 mg/dL (9-23); Calcium 9.2 mg/dL (8.7-10.4); Carbon Dioxide 25 mmol/L (20-31); Chloride 111 mmol/L (98-107); Glucose 172 mg/dL (74-106); Potassium 3.5 mmol/L (3.5-5.1); Sodium 142 mmol/L (136-145)
[2023-12-17 07:13] LABS: Bilirubin, Total 0.3 mg/dL (0.2-1.0); Total Protein 5.1 g/dL (5.7-8.2)
[2023-12-17 07:20] LABS: Basophils # (auto) 0 10 ^3/uL (0-0.2); Eosinophils # (auto) 0 10 ^3/uL (0-0.8); Hemoglobin 7.3 g/dL (12.2-16.2); Mean Corpuscular Hgb Conc. 35.8 g/dL (32.0-36.0); Monocytes # (auto) 0.6 10 ^3/uL (0-1.3); Platelet Count (auto) 128 10^3/uL (140-450); White Blood Cell 7.2 10^3/uL (4.4-10.8)
[2023-12-17 07:23] LABS: Basophils % (auto) 0.1 % (0.0-2.0); Hematocrit 20.3 % (36.0-46.0); Lymphocytes # (auto) 0.7 10 ^3/uL (0.4-5.4); Lymphocytes % (auto) 10.2 % (10.0-50.0); Mean Corpuscular Hemoglobin 33.3 pg (28.0-32.0); Mean Corpuscular Volume 93.1 fL (80.0-100.0); Neutrophils # (auto) 5.9 10 ^3/uL (1.6-8.6); Neutrophils % (auto) 81.7 % (37.0-80.0); Red Blood Cells 2.18 10^6/uL (4.0-5.20); Red Cell Distribution Width 13.3 % (11.8-14.3)
[2023-12-17 11:39] LABS: Basophils # (auto) 0 10 ^3/uL (0-0.2); Eosinophils # (auto) 0 10 ^3/uL (0-0.8); Lymphocytes # (auto) 0.7 10 ^3/uL (0.4-5.4); Monocytes # (auto) 0.5 10 ^3/uL (0-1.3); Monocytes % (auto) 7.8 % (0.0-12.0); Red Cell Distribution Width 13.1 % (11.8-14.3)
[2023-12-17 11:42] LABS: Hematocrit 19.5 % (36.0-46.0); Lymphocytes % (auto) 10.3 % (10.0-50.0); Mean Corpuscular Hemoglobin 32.9 pg (28.0-32.0); Mean Corpuscular Hgb Conc. 35.4 g/dL (32.0-36.0); Mean Corpuscular Volume 92.9 fL (80.0-100.0); Neutrophils # (auto) 5.6 10 ^3/uL (1.6-8.6); Neutrophils % (auto) 81.9 % (37.0-80.0); Platelet Count (auto) 131 10^3/uL (140-450); Red Blood Cells 2.09 10^6/uL (4.0-5.20); White Blood Cell 6.9 10^3/uL (4.4-10.8)
[2023-12-17 11:47] LABS: Hemoglobin 6.9 g/dL (12.2-16.2)
[2023-12-17] MEDS ORDERED: MORPHINE SULFATE INJ 2 MG/ml SYRG IV PRN (13:45)
[2023-12-17] MEDS: MORPHINE SULFATE INJ 2 MG/ml SYRG IV PRN (15:39)
[2023-12-17] MEDS: HYDROmorphone HCL 2 MG TAB PO PRN (20:37)
[2023-12-17 22:50] LABS: Hematocrit 25.3 % (36.0-46.0); Hemoglobin 8.7 g/dL (12.2-16.2)
[2023-12-18 04:50] VITALS: BP 128/43; PULSE 74; RESP 19; TEMP 98.4; O2SAT 91
[2023-12-18 06:26] LABS: Basophils # (auto) 0 10 ^3/uL (0-0.2); Basophils % (auto) 0.4 % (0.0-2.0); Eosinophils # (auto) 0.1 10 ^3/uL (0-0.8); Eosinophils % (auto) 1.1 % (0.0-7.0); Hematocrit 24.1 % (36.0-46.0); Hemoglobin 8.7 g/dL (12.2-16.2); Lymphocytes # (auto) 1.5 10 ^3/uL (0.4-5.4); Lymphocytes % (auto) 23.7 % (10.0-50.0); Mean Corpuscular Hemoglobin 33.1 pg (28.0-32.0); Mean Corpuscular Volume 91.9 fL (80.0-100.0); Monocytes # (auto) 0.6 10 ^3/uL (0-1.3); Monocytes % (auto) 9.1 % (0.0-12.0); Neutrophils # (auto) 4.2 10 ^3/uL (1.6-8.6); Neutrophils % (auto) 65.7 % (37.0-80.0); Platelet Count (auto) 125 10^3/uL (140-450); Red Blood Cells 2.63 10^6/uL (4.0-5.20); Red Cell Distribution Width 13.9 % (11.8-14.3); White Blood Cell 6.4 10^3/uL (4.4-10.8)
[2023-12-18 06:27] LABS: Anion Gap 6 (5-15); Carbon Dioxide 26 mmol/L (20-31); Chloride 111 mmol/L (98-107); Potassium 3.3 mmol/L (3.5-5.1); Sodium 143 mmol/L (136-145)
[2023-12-18 06:29] LABS: Calcium 8.9 mg/dL (8.7-10.4)
[2023-12-18 06:33] LABS: Blood Urea Nitrogen 16 mg/dL (9-23); Glucose 110 mg/dL (74-106)
[2023-12-18 08:47] VITALS: BP 136/59; PULSE 63; RESP 16; TEMP 97.9; O2SAT 92
[2023-12-18] MEDS: IRON SUCROSE COMPLEX 100 ML IV SCH (12:49)
[2023-12-18 13:12] VITALS: BP 129/44; PULSE 62; RESP 17; TEMP 98.5; O2SAT 91
[2023-12-18] MEDS: POTASSIUM EFFERVESENT TAB 25 MEQ PO ONE (15:50)
[2023-12-18 16:41] VITALS: BP 145/69; PULSE 74; RESP 15; TEMP 98.3; O2SAT 94
[2023-12-18 20:00] VITALS: PULSE 61
[2023-12-18 21:12] VITALS: BP 137/46; PULSE 66; RESP 17; TEMP 98.3; O2SAT 94
[2023-12-18] MEDS: CARISOPRODOL 350 MG TAB PO SCH (21:35)
[2023-12-19] VITALS (8 sets, daily range): BP systolic 38–142; BP diastolic 44–76; PULSE 60–81; RESP 17–19; TEMP 97.3–99.3; O2SAT 90–95
[2023-12-19 10:04] LABS: Chloride 108 mmol/L (98-107); Potassium 3.3 mmol/L (3.5-5.1); Sodium 139 mmol/L (136-145)
[2023-12-19 10:05] LABS: Anion Gap 4 (5-15); Calcium 8.5 mg/dL (8.7-10.4); Carbon Dioxide 27 mmol/L (20-31)
[2023-12-19 10:10] LABS: Blood Urea Nitrogen 13 mg/dL (9-23); Glucose 166 mg/dL (74-106)
[2023-12-19 10:19] LABS: Basophils # (auto) 0 10 ^3/uL (0-0.2); Basophils % (auto) 0.5 % (0.0-2.0); Eosinophils # (auto) 0.2 10 ^3/uL (0-0.8); Eosinophils % (auto) 3.8 % (0.0-7.0); Hematocrit 24.9 % (36.0-46.0); Hemoglobin 8.6 g/dL (12.2-16.2); Lymphocytes # (auto) 1.1 10 ^3/uL (0.4-5.4); Lymphocytes % (auto) 18.2 % (10.0-50.0); Mean Corpuscular Hgb Conc. 34.4 g/dL (32.0-36.0); Monocytes # (auto) 0.7 10 ^3/uL (0-1.3); Monocytes % (auto) 11.5 % (0.0-12.0); Neutrophils # (auto) 4.1 10 ^3/uL (1.6-8.6); Nucleated Red Blood Cells % 0.1 %; Platelet Count (auto) 145 10^3/uL (140-450); Red Blood Cells 2.67 10^6/uL (4.0-5.20); Red Cell Distribution Width 13.8 % (11.8-14.3); White Blood Cell 6.1 10^3/uL (4.4-10.8)
[2023-12-19] MEDS: POTASSIUM EFFERVESENT TAB 25 MEQ PO ONE (11:30)
[2023-12-19] MEDS: POLYETHYLENE GLYCOL 17 GM PWDR PO ONE (12:34)
[2023-12-19] MEDS: LACTULOSE 20Gm/30ML SOLN PO ONE (12:35)
[2023-12-20] VITALS (8 sets, daily range): BP systolic 107–139; BP diastolic 40–72; PULSE 73–96; RESP 16–19; TEMP 98.2–99.5; O2SAT 91–96
[2023-12-20 06:28] LABS: Anion Gap 6 (5-15); Carbon Dioxide 27 mmol/L (20-31); Chloride 106 mmol/L (98-107); Potassium 3.4 mmol/L (3.5-5.1); Sodium 139 mmol/L (136-145)
[2023-12-20 06:29] LABS: Calcium 8.7 mg/dL (8.7-10.4)
[2023-12-20 06:33] LABS: Glucose 127 mg/dL (74-106)
[2023-12-20 06:34] LABS: BUN/Creatinine Ratio 9.8 (10.0-20.0); Blood Urea Nitrogen 10 mg/dL (9-23); Magnesium 1.6 mg/dL (1.6-2.6)
[2023-12-20] MEDS: SODIUM FERR GLUC 62.5MG/5ML 110 ML IV SCH (12:00)
[2023-12-20] MEDS ORDERED: SODIUM FERR GLUC 62.5MG/5ML 110 ML IV SCH (12:00)
[2023-12-21] VITALS (8 sets, daily range): BP systolic 106–156; BP diastolic 44–57; PULSE 64–80; RESP 16–18; TEMP 98.7–99.9; O2SAT 90–92
[2023-12-21] MEDS ORDERED: SODIUM FERR GLUC 62.5MG/5ML 110 ML IV SCH (12:00)
[2023-12-21] MEDS ORDERED: CYCLOBENZAPRINE HCL 10 MG TAB PO PRN (18:15)
[2023-12-22 01:00] VITALS: BP 139/61; PULSE 87; RESP 17; TEMP 100.6; O2SAT 90
[2023-12-22 05:00] VITALS: BP 127/55; PULSE 74; RESP 17; TEMP 98.2; O2SAT 91
[2023-12-22 08:00] VITALS: PULSE 75; RESP 18
[2023-12-22 09:00] VITALS: BP 123/45; PULSE 70; RESP 15; TEMP 98.9; O2SAT 90
[2023-12-22 11:10] LABS: Chloride 102 mmol/L (98-107); Potassium 3.6 mmol/L (3.5-5.1); Sodium 136 mmol/L (136-145)
[2023-12-22 11:11] LABS: Anion Gap 5 (5-15); Basophils # (auto) 0.1 10 ^3/uL (0-0.2); Basophils % (auto) 0.6 % (0.0-2.0); Carbon Dioxide 29 mmol/L (20-31); Eosinophils # (auto) 0.2 10 ^3/uL (0-0.8); Eosinophils % (auto) 1.7 % (0.0-7.0); Hematocrit 27.1 % (36.0-46.0); Hemoglobin 9.5 g/dL (12.2-16.2); Lymphocytes # (auto) 0.9 10 ^3/uL (0.4-5.4); Lymphocytes % (auto) 9.6 % (10.0-50.0); Mean Corpuscular Hemoglobin 32.9 pg (28.0-32.0); Mean Corpuscular Hgb Conc. 35.1 g/dL (32.0-36.0); Mean Corpuscular Volume 93.7 fL (80.0-100.0); Monocytes % (auto) 11.1 % (0.0-12.0); Neutrophils # (auto) 7.2 10 ^3/uL (1.6-8.6); Platelet Count (auto) 266 10^3/uL (140-450); Red Blood Cells 2.89 10^6/uL (4.0-5.20); Red Cell Distribution Width 13.9 % (11.8-14.3); White Blood Cell 9.4 10^3/uL (4.4-10.8)
[2023-12-22 11:12] LABS: Calcium 9.4 mg/dL (8.7-10.4)
[2023-12-22 11:16] LABS: BUN/Creatinine Ratio 14.9 (10.0-20.0); Blood Urea Nitrogen 15 mg/dL (9-23); Glucose 98 mg/dL (74-106)
[2023-12-22] MEDS ORDERED: HYDR-4564 PO (12:18)
[2023-12-22] MEDS ORDERED: DOCU-265 PO (12:18)
[2023-12-22] MEDS ORDERED: CARI-579 PO (12:18)
[2023-12-22 13:00] VITALS: BP 98/42; PULSE 72; RESP 16; TEMP 99; O2SAT 94
[2023-12-22 16:04] VITALS: BP 94/48; PULSE 92; RESP 18; TEMP 37.2; O2SAT 94
[2023-12-22] MEDS ORDERED: TRANEXAMIC ACID 1,000 mg/10ml INJ VIAL IV ONE (17:16)
== END 2023-12-22 17:17 | disposition home health service (06) | DRG 447 ==
LOC: SUR 08:08 → TELE 18:11 → DOU IN ICU 20:00 → TELE-EAST 12-16 19:22 → EAST 12-21 17:29
PROVIDERS: ADMIT Orthopaedic Surgery; ATTEND Internal Medicine
PROC: 01NB0ZZ Release Lumbar Nerve, Open Approach (ICD-10-PCS; 2023-12-15)
PROC: 00NY0ZZ Release Lumbar Spinal Cord, Open Approach (ICD-10-PCS; 2023-12-15)
PROC: 0SG10AJ Fusion of 2 or more Lumbar Vertebral Joints with Interbody Fusion Device, Posterior Approach, Anterior Column, Open Approach (ICD-10-PCS; principal; 2023-12-15 13:15)
PROC: 30233N1 Transfusion of Nonautologous Red Blood Cells into Peripheral Vein, Percutaneous Approach (ICD-10-PCS; 2023-12-17)
DX: M48.062 Spinal stenosis, lumbar region with neurogenic claudication (principal); N17.0 Acute kidney failure with tubular necrosis; G89.29 Other chronic pain; M43.16 Spondylolisthesis, lumbar region; E78.5 Hyperlipidemia, unspecified; D64.9 Anemia, unspecified; G89.18 Other acute postprocedural pain; K59.00 Constipation, unspecified; N18.32 Chronic kidney disease, stage 3b; I12.9 Hypertensive chronic kidney disease with stage 1 through stage 4 chronic kidney disease, or unspecified chronic kidney disease; Z79.891 Long term (current) use of opiate analgesic; Z82.5 Family history of asthma and other chronic lower respiratory diseases; Z80.0 Family history of malignant neoplasm of digestive organs; Z79.82 Long term (current) use of aspirin; Z79.899 Other long term (current) drug therapy
CPT/HCPCS: 36415; 72100; 76000; 80048; 80053; 81001; 83735; 85014; 85018; 85025; 85610; 85730; 86850; 86900; 86901; 86920; 87081; 93005; 93971; 97110; 97116; 97163; 97530; G0378; J1756; J1956; J2250; J2704; J7042

== ENCOUNTER → 2024-01-06 | Outpatient (CLI) | payer BC ==
[~2024-01-06] MED LIST changes: +CARI-579 PO; +DOCU-265 PO; +HYDR-4564 PO
[2024-01-06 10:11] LABS: Urine Bacteria None Seen /hpf (None Seen)
[2024-01-06 10:28] LABS: Basophils # (auto) 0.1 10 ^3/uL (0-0.2); Basophils % (auto) 1.1 % (0.0-2.0); Eosinophils # (auto) 0.4 10 ^3/uL (0-0.8); Eosinophils % (auto) 6.9 % (0.0-7.0); Hematocrit 30.5 % (36.0-46.0); Hemoglobin 10.3 g/dL (12.2-16.2); Lymphocytes # (auto) 1.3 10 ^3/uL (0.4-5.4); Lymphocytes % (auto) 23.8 % (10.0-50.0); Mean Corpuscular Hemoglobin 32.6 pg (28.0-32.0); Mean Corpuscular Hgb Conc. 33.8 g/dL (32.0-36.0); Mean Corpuscular Volume 96.4 fL (80.0-100.0); Monocytes # (auto) 0.3 10 ^3/uL (0-1.3); Monocytes % (auto) 6.2 % (0.0-12.0); Neutrophils # (auto) 3.4 10 ^3/uL (1.6-8.6); Nucleated Red Blood Cells % 0.1 %; Platelet Count (auto) 287 10^3/uL (140-450); Red Blood Cells 3.16 10^6/uL (4.0-5.20); Red Cell Distribution Width 16.9 % (11.8-14.3); White Blood Cell 5.4 10^3/uL (4.4-10.8)
[2024-01-06 10:47] LABS: Urine Blood Negative /uL (Negative); Urine Clarity Clear (Clear); Urine Color Light-Yellow (Yellow); Urine Hyaline Cast FEW /lpf (0 - 2); Urine Mucus FEW (None Seen); Urine Protein, UAD TRACE (Negative); Urine Specific Gravity 1.024 (1.001-1.035); Urine Urobilinogen Normal (Negative); Urine WBC 1 /hpf (0 - 5)
[2024-01-06 10:59] LABS: Potassium 3.4 mmol/L (3.5-5.1)
[2024-01-06 11:00] LABS: Calcium 9.6 mg/dL (8.7-10.4)
[2024-01-06 11:05] LABS: BUN/Creatinine Ratio 12.6 (10.0-20.0)
[2024-01-06 11:07] LABS: Albumin 3.6 g/dL (3.2-4.8); Phosphorus 3.2 mg/dL (2.4-5.1)
[2024-01-06 11:28] LABS: Uric Acid 8.3 mg/dL (3.1-7.8)
[2024-01-06 12:22] LABS: Protein, Urine 46.1 mg/dL (1-14)
[2024-01-06 12:24] LABS: Creatinine, Urine 134.34 mg/dL (30.0-125.0); Urine Protein/Creatinine Ratio 0.34
== END | disposition home or self-care (01) ==
LOC: LAB 10:01
PROVIDERS: ATTEND Internal Medicine Nephrology
DX: E21.3 Hyperparathyroidism, unspecified (principal); E56.9 Vitamin deficiency, unspecified; R80.9 Proteinuria, unspecified
CPT/HCPCS: 36415; 80069; 81001; 82306; 82570; 83970; 84156; 84550; 85025

== ENCOUNTER → 2024-05-10 | Outpatient (CLI) | payer BC ==
[2024-05-10 12:45] LABS: Basophils # (auto) 0.1 10 ^3/uL (0-0.2); Basophils % (auto) 1.5 % (0.0-2.0); Eosinophils # (auto) 0.5 10 ^3/uL (0-0.8); Eosinophils % (auto) 7.1 % (0.0-7.0); Hematocrit 43.6 % (36.0-46.0); Hemoglobin 14.2 g/dL (12.2-16.2); Lymphocytes # (auto) 1.9 10 ^3/uL (0.4-5.4); Lymphocytes % (auto) 27.6 % (10.0-50.0); Mean Corpuscular Hemoglobin 30.8 pg (28.0-32.0); Mean Corpuscular Hgb Conc. 32.6 g/dL (32.0-36.0); Mean Corpuscular Volume 94.6 fL (80.0-100.0); Monocytes # (auto) 0.5 10 ^3/uL (0-1.3); Monocytes % (auto) 6.8 % (0.0-12.0); Neutrophils # (auto) 3.9 10 ^3/uL (1.6-8.6); Nucleated Red Blood Cells % 0.1 %; Platelet Count (auto) 213 10^3/uL (140-450); Red Cell Distribution Width 14.8 % (11.8-14.3); White Blood Cell 6.9 10^3/uL (4.4-10.8)
[2024-05-10 13:05] LABS: Potassium 4.5 mmol/L (3.5-5.1)
[2024-05-10 13:06] LABS: Calcium 10.5 mg/dL (8.7-10.4)
[2024-05-10 13:13] LABS: Albumin 4.7 g/dL (3.2-4.8); Phosphorus 3.4 mg/dL (2.4-5.1)
[2024-05-10 13:26] LABS: Uric Acid 8.2 mg/dL (3.1-7.8)
[2024-05-10 13:35] LABS: Urine Bacteria FEW /hpf (None Seen); Urine Blood Negative /uL (Negative); Urine Clarity Clear (Clear); Urine Color Yellow (Yellow); Urine Hyaline Cast FEW /lpf (0 - 2); Urine Mucus FEW (None Seen); Urine Protein, UAD TRACE (Negative); Urine Specific Gravity 1.028 (1.001-1.035); Urine Squamous Epithelial Cell FEW /hpf (<5); Urine Urobilinogen Normal (Negative); Urine WBC 13 /HPF (0-5); Urine pH 5.5 (5.0-9.0)
[2024-05-10 14:03] LABS: Protein, Urine 30.6 mg/dL (1-14)
[2024-05-10 14:05] LABS: Creatinine, Urine 185.1 mg/dL (30.0-125.0); Urine Protein/Creatinine Ratio 0.17
== END | disposition home or self-care (01) ==
LOC: LAB 12:31
PROVIDERS: ATTEND Internal Medicine Nephrology
DX: E11.22 Type 2 diabetes mellitus with diabetic chronic kidney disease (principal); N18.30 Chronic kidney disease, stage 3 unspecified; E11.21 Type 2 diabetes mellitus with diabetic nephropathy; N39.0 Urinary tract infection, site not specified; E55.9 Vitamin D deficiency, unspecified; E21.3 Hyperparathyroidism, unspecified; M10.9 Gout, unspecified; R80.9 Proteinuria, unspecified; D63.1 Anemia in chronic kidney disease
CPT/HCPCS: 36415; 80069; 81001; 82570; 83970; 84156; 84550; 85025

== ENCOUNTER → 2024-06-28 | Outpatient (CLI) | payer BC ==
[2024-06-28 09:58] LABS: Urine Bacteria None Seen /hpf (None Seen)
[2024-06-28 10:29] LABS: Basophils # (auto) 0.1 10 ^3/uL (0-0.2); Basophils % (auto) 1.2 % (0.0-2.0); Eosinophils # (auto) 0.4 10 ^3/uL (0-0.8); Eosinophils % (auto) 6.1 % (0.0-7.0); Hematocrit 41.6 % (36.0-46.0); Lymphocytes # (auto) 1.6 10 ^3/uL (0.4-5.4); Lymphocytes % (auto) 22.2 % (10.0-50.0); Mean Corpuscular Hemoglobin 31.8 pg (28.0-32.0); Mean Corpuscular Hgb Conc. 33.6 g/dL (32.0-36.0); Mean Corpuscular Volume 94.6 fL (80.0-100.0); Monocytes # (auto) 0.4 10 ^3/uL (0-1.3); Monocytes % (auto) 5.4 % (0.0-12.0); Neutrophils # (auto) 4.5 10 ^3/uL (1.6-8.6); Neutrophils % (auto) 65.1 % (37.0-80.0); Nucleated Red Blood Cells % 0.1 %; Platelet Count (auto) 209 10^3/uL (140-450); Red Cell Distribution Width 14.2 % (11.8-14.3)
[2024-06-28 10:31] LABS: Urine Blood Negative /uL (Negative); Urine Clarity Clear (Clear); Urine Color Yellow (Yellow); Urine Hyaline Cast FEW /lpf (0 - 2); Urine Protein, UAD Negative (Negative); Urine Specific Gravity 1.025 (1.001-1.035); Urine Squamous Epithelial Cell FEW /hpf (<5); Urine Urobilinogen Normal (Negative); Urine WBC 4 /HPF (0-5); Urine pH 5.5 (5.0-9.0)
[2024-06-28 10:38] LABS: Potassium 4.4 mmol/L (3.5-5.1)
[2024-06-28 10:41] LABS: Calcium 10.5 mg/dL (8.7-10.4)
[2024-06-28 10:43] LABS: Uric Acid 8.4 mg/dL (3.1-7.8)
[2024-06-28 10:44] LABS: BUN/Creatinine Ratio 19.1 (10.0-20.0); Creatinine, Urine 141.69 mg/dL (30.0-125.0)
[2024-06-28 10:46] LABS: Albumin 4.6 g/dL (3.2-4.8); Phosphorus 3.1 mg/dL (2.4-5.1)
== END | disposition home or self-care (01) ==
LOC: LAB 09:45
PROVIDERS: ATTEND Internal Medicine
DX: E11.22 Type 2 diabetes mellitus with diabetic chronic kidney disease (principal); N18.30 Chronic kidney disease, stage 3 unspecified; E11.21 Type 2 diabetes mellitus with diabetic nephropathy; E21.3 Hyperparathyroidism, unspecified; E55.9 Vitamin D deficiency, unspecified; M10.9 Gout, unspecified; N39.0 Urinary tract infection, site not specified; R80.9 Proteinuria, unspecified; D63.1 Anemia in chronic kidney disease
CPT/HCPCS: 36415; 80069; 81001; 82043; 82570; 83970; 84550; 85025

== ENCOUNTER 2024-09-20 09:17 | Outpatient (CLI) | payer BC ==
[2024-09-20 10:18] LABS: Hematocrit 42.4 % (36.0-46.0); Hemoglobin 14.1 g/dL (12.2-16.2); Mean Corpuscular Hemoglobin 31.6 pg (28.0-32.0); Mean Corpuscular Volume 95.1 fL (80.0-100.0); Nucleated Red Blood Cells % 0.0 %
[2024-09-20 10:55] LABS: Urine Protein, UAD Negative (Negative)
[2024-09-20 11:04] LABS: Anion Gap 11.0 (5-15); Carbon Dioxide 25.0 mmol/L (20-31); Potassium 4.2 mmol/L (3.5-5.1); Sodium 144.0 mmol/L (136-145)
[2024-09-20 11:08] LABS: Protein, Urine 24.5 mg/dL (1-14)
[2024-09-20 11:10] LABS: Albumin 4.5 g/dL (3.2-4.8); BUN/Creatinine Ratio 18.9 (10.0-20.0)
[2024-09-20 11:17] LABS: Blood Urea Nitrogen 37.0 mg/dL (9-23); Calcium 10.7 mg/dL (8.7-10.4); Chloride 108.0 mmol/L (98-107); Glucose 108.0 mg/dL (74-106)
[2024-09-20 11:57] LABS: Uric Acid 8.3 mg/dL (3.1-7.8)
== END 2024-09-20 17:00 | disposition home or self-care (01) ==
LOC: LAB 09:17
PROVIDERS: ATTEND Internal Medicine
DX: E11.22 Type 2 diabetes mellitus with diabetic chronic kidney disease (principal); E11.21 Type 2 diabetes mellitus with diabetic nephropathy; N18.30 Chronic kidney disease, stage 3 unspecified; E21.3 Hyperparathyroidism, unspecified; E55.9 Vitamin D deficiency, unspecified; N39.0 Urinary tract infection, site not specified; D63.1 Anemia in chronic kidney disease; M10.9 Gout, unspecified; R80.9 Proteinuria, unspecified
CPT/HCPCS: 36415; 80069; 81001; 82570; 83970; 84156; 84550; 85025

== ENCOUNTER 2025-01-02 10:00 | Outpatient (CLI) | payer BC ==
[2025-01-02 10:47] LABS: Hematocrit 39.5 % (36.0-46.0); Hemoglobin 13.4 g/dL (12.2-16.2); Mean Corpuscular Hemoglobin 32.4 pg (28.0-32.0); Mean Corpuscular Volume 95.3 fL (80.0-100.0); Nucleated Red Blood Cells % 0.1 %
[2025-01-02 10:54] LABS: Urine Protein, UAD Negative (Negative)
[2025-01-02 11:00] LABS: Chloride 112.0 mmol/L (98-107); Potassium 3.9 mmol/L (3.5-5.1); Sodium 145.0 mmol/L (136-145)
[2025-01-02 11:01] LABS: Anion Gap 11.0 (5-15); Carbon Dioxide 22.0 mmol/L (20-31)
[2025-01-02 11:02] LABS: Calcium 9.4 mg/dL (8.7-10.4)
[2025-01-02 11:06] LABS: Glucose 101.0 mg/dL (74-106)
[2025-01-02 11:08] LABS: Albumin 4.3 g/dL (3.2-4.8); BUN/Creatinine Ratio 14.6 (10.0-20.0); Blood Urea Nitrogen 28.0 mg/dL (9-23)
[2025-01-02 11:10] LABS: Protein, Urine 29.8 mg/dL (1-14)
[2025-01-02 12:03] LABS: Uric Acid 8.5 mg/dL (3.1-7.8)
== END 2025-01-02 17:00 | disposition home or self-care (01) ==
LOC: LAB 10:00
PROVIDERS: ATTEND Internal Medicine Nephrology
DX: E11.22 Type 2 diabetes mellitus with diabetic chronic kidney disease (principal); N18.30 Chronic kidney disease, stage 3 unspecified; E11.21 Type 2 diabetes mellitus with diabetic nephropathy; E55.9 Vitamin D deficiency, unspecified; E21.3 Hyperparathyroidism, unspecified; N39.0 Urinary tract infection, site not specified; D63.1 Anemia in chronic kidney disease; M10.9 Gout, unspecified; R80.9 Proteinuria, unspecified
CPT/HCPCS: 36415; 80069; 81001; 82043; 82570; 83970; 84156; 84550; 85025

== ENCOUNTER 2025-01-10 13:30 | Outpatient (CLI) | payer BC | END 2025-01-10 17:00 | disposition home or self-care (01) | LOC: LAB 13:30 | PROVIDERS: ATTEND Dermatology | DX: Z01.812 Encounter for preprocedural laboratory examination (principal) ==